=== PATIENT | male | born 1950 | race Caucasian/White ===

== ENCOUNTER 2021-03-31 21:30 | Inpatient (IN) | payer OTHER ==
[2021-03-31 21:39] VITALS: BMI 26.8
[2021-03-31] MEDS ORDERED: ACETAMINOPHEN 1000 MG/100 ML VIAL (NON FORMULARY) IVPB ONE (21:53)
[2021-03-31] MEDS ORDERED: ACETAMINOPHEN INJECTION 100 ML IVPB ONE (22:02)
[2021-03-31 22:33] LABS: BASO % 0.1 % (0-2.0); HEMATOCRIT 41.6 % (35.4-49); HEMOGLOBIN 14.6 GM/dL (11.7-16.9); LYMPH % 5.2 % (8-40); MCH 29.9 pg (25.7-33.7); MEAN CELL VOLUME 85.4 fl (80-96); MONO % 5.8 % (3.8-10.2); NEUT % 88.9 % (42.8-82.8); PLATELET COUNT 116 10^3/uL (134-434); RBC 4.87 M/mm3 (4.00-5.60); RDW 13.8 % (11.9-15.9); WHITE BLOOD COUNT 10.4 K/mm3 (4.0-10.0)
[2021-03-31 22:36] LABS: VENOUS BASE EXCESS 0.9 mmol/L (-2-2); VENOUS O2 SATURATION 91.1 % (70-80); VENOUS PCO2 33.8 mmHg (38-52); VENOUS PH 7.468 (7.310-7.410)
[2021-03-31 22:41] LABS: INR 1.24 (0.83-1.09); PROTHROMBIN TIME (PATIENT) 15.1 SEC (9.7-13.0)
[2021-03-31 22:44] LABS: ACTIVATED PTT 29.7 SECONDS (25.2-36.5)
[2021-03-31 22:54] LABS: CALCIUM 8.3 mg/dL (8.5-10.1)
[2021-03-31] MEDS ORDERED: SODIUM CHLORIDE 500 ML IV STA (22:54)
[2021-03-31 22:55] LABS: ALBUMIN 3.3 g/dl (3.4-5.0); BLOOD UREA NITROGEN 18.8 mg/dL (7-18); MAGNESIUM 2.3 mg/dL (1.8-2.4)
[2021-03-31 22:58] LABS: CREATININE 1.1 mg/dL (0.55-1.3); PHOSPHOROUS 1.6 mg/dL (2.5-4.9)
[2021-03-31 22:59] LABS: BILIRUBIN,TOTAL 0.8 mg/dL (0.2-1); TOT PROT 7.2 g/dl (6.4-8.2)
[2021-03-31 23:08] LABS: EPI CELLS >36 /uL (0-25.1); HYALINE CASTS 3 /uL (0-3.1); PH,URINE 5.5 (5.0-8.0); URINE APPEARANCE CLOUDY; URINE BACTERIA 8 /uL (0-1359); URINE BILIRUBIN 1+ (NEGATIVE); URINE COLOR DK YELLOW; URINE GLUCOSE (UA) NEGATIVE (NEGATIVE); URINE KETONE TRACE (NEGATIVE); URINE LEUK ESTERASE NEGATIVE (NEGATIVE); URINE NITRITE NEGATIVE (NEGATIVE); URINE PROTEIN 3+ (NEGATIVE); URINE RBC 15 /uL (0-23.9); URINE WBC 21 /uL (0-25.8)
[2021-04-01 05:48] LABS: BASO % 0.2 % (0-2.0); EOS % 0.1 % (0-4.5); HEMATOCRIT 42.4 % (35.4-49); HEMOGLOBIN 14.6 GM/dL (11.7-16.9); LYMPH % 10.5 % (8-40); MCH 29.9 pg (25.7-33.7); MCHC 34.4 g/dl (32.0-35.9); MEAN CELL VOLUME 86.8 fl (80-96); MEAN PLT VOLUME 9.6 fl (7.5-11.1); MONO % 5.4 % (3.8-10.2); NEUT % 83.8 % (42.8-82.8); PLATELET COUNT 110 10^3/uL (134-434); RBC 4.88 M/mm3 (4.00-5.60); RDW 13.8 % (11.9-15.9); WHITE BLOOD COUNT 10.4 K/mm3 (4.0-10.0)
[2021-04-01 06:19] LABS: ALBUMIN 3.2 g/dl (3.4-5.0); CALCIUM 8.6 mg/dL (8.5-10.1)
[2021-04-01 06:20] LABS: BLOOD UREA NITROGEN 19.3 mg/dL (7-18); MAGNESIUM 2.5 mg/dL (1.8-2.4)
[2021-04-01 06:23] LABS: PHOSPHOROUS 2.8 mg/dL (2.5-4.9)
[2021-04-01 06:24] LABS: BILIRUBIN,TOTAL 0.7 mg/dL (0.2-1); TOT PROT 7.2 g/dl (6.4-8.2)
[2021-04-01] MEDS ORDERED: FAMOTIDINE 20 MG TABLET ONE (09:30)
[2021-04-01] MEDS ORDERED: ZINC SULFATE 220 MG CAPSULE (FP) ONE (09:30)
[2021-04-01] MEDS ORDERED: CHOLECALCIFEROL (VIT D3) 1,000 UNIT (25 MCG) TABLET ONE (09:30)
[2021-04-01] MEDS ORDERED: ENOXAPARIN NA (PORCINE) 40 MG/0.4 ML DISP.SYRIN SQ ONE (09:31)
[2021-04-01] MEDS ORDERED: ASCORBIC ACID 250 MG TABLET (FP) PO SCH (10:00)
[2021-04-01] MEDS ORDERED: AZITHROMYCIN IVPB 250 MG in DEXTROSE 5%-WATER - 250 ML IVPB SCH (10:00)
[2021-04-01] MEDS ORDERED: DEXAMETHASONE 4 MG TABLET (FP) ONE (10:07)
[2021-04-01] MEDS ORDERED: ALBUTEROL SO4 HFA INHALER IH PRN (10:13)
[2021-04-01] MEDS: DEXAMETHASONE 4 MG TABLET (FP) PO SCH (10:29)
[2021-04-01] MEDS: ZINC SULFATE 220 MG CAPSULE (FP) PO SCH (10:30)
[2021-04-01] MEDS: ENOXAPARIN NA (PORCINE) 40 MG/0.4 ML DISP.SYRIN SQ SCH (10:30)
[2021-04-01] MEDS: FAMOTIDINE 20 MG TABLET PO SCH (10:30)
[2021-04-01] MEDS: CHOLECALCIFEROL (VIT D3) 1,000 UNIT (25 MCG) TABLET PO SCH (10:30)
[2021-04-01] MEDS ORDERED: NAPH,MB-DB/K PH,MBDB POWDER PACKET PO SCH (14:00)
[2021-04-01] MEDS: BUDESONIDE/FORMETEROL FUMARATE 160/4.5 mcg INHALER IH SCH (21:08)
[2021-04-01] MEDS: ASCORBIC ACID 500 MG TABLET (FP) PO SCH (21:09)
[2021-04-02 06:59] LABS: BASO % 0.1 % (0-2.0); HEMATOCRIT 40.7 % (35.4-49); HEMOGLOBIN 14.3 GM/dL (11.7-16.9); LYMPH % 5.4 % (8-40); MCH 29.7 pg (25.7-33.7); MCHC 35.1 g/dl (32.0-35.9); MEAN CELL VOLUME 84.6 fl (80-96); MEAN PLT VOLUME 9.8 fl (7.5-11.1); MONO % 4.6 % (3.8-10.2); NEUT % 89.9 % (42.8-82.8); PLATELET COUNT 147 10^3/uL (134-434); RBC 4.81 M/mm3 (4.00-5.60); WHITE BLOOD COUNT 10.1 K/mm3 (4.0-10.0)
[2021-04-02 07:12] LABS: ALBUMIN 2.8 g/dl (3.4-5.0); BLOOD UREA NITROGEN 18.1 mg/dL (7-18); CALCIUM 8.3 mg/dL (8.5-10.1)
[2021-04-02 07:15] LABS: CREATININE 0.8 mg/dL (0.55-1.3)
[2021-04-02 07:17] LABS: BILIRUBIN,TOTAL 0.8 mg/dL (0.2-1); TOT PROT 6.9 g/dl (6.4-8.2)
[2021-04-02] MEDS: DEXAMETHASONE 4 MG TABLET (FP) PO SCH (10:05)
[2021-04-02] MEDS: ASCORBIC ACID 500 MG TABLET (FP) PO SCH ×2 (10:05→21:50)
[2021-04-02] MEDS: FAMOTIDINE 20 MG TABLET PO SCH (10:05)
[2021-04-02] MEDS: CHOLECALCIFEROL (VIT D3) 1,000 UNIT (25 MCG) TABLET PO SCH (10:05)
[2021-04-02] MEDS: ZINC SULFATE 220 MG CAPSULE (FP) PO SCH (10:05)
[2021-04-02] MEDS: ENOXAPARIN NA (PORCINE) 40 MG/0.4 ML DISP.SYRIN SQ SCH (10:05)
[2021-04-02] MEDS: BUDESONIDE/FORMETEROL FUMARATE 160/4.5 mcg INHALER IH SCH ×2 (10:22→21:51)
[2021-04-03 07:24] LABS: BASO % 0.1 % (0-2.0); HEMATOCRIT 40.6 % (35.4-49); LYMPH % 5.9 % (8-40); MCH 29.5 pg (25.7-33.7); MCHC 34.5 g/dl (32.0-35.9); MEAN CELL VOLUME 85.4 fl (80-96); MEAN PLT VOLUME 10.2 fl (7.5-11.1); MONO % 8.4 % (3.8-10.2); NEUT % 85.6 % (42.8-82.8); PLATELET COUNT 180 10^3/uL (134-434); RBC 4.76 M/mm3 (4.00-5.60); RDW 13.8 % (11.9-15.9); WHITE BLOOD COUNT 12.6 K/mm3 (4.0-10.0)
[2021-04-03 07:51] LABS: BLOOD UREA NITROGEN 24.2 mg/dL (7-18)
[2021-04-03 07:52] LABS: CALCIUM 8.5 mg/dL (8.5-10.1); MAGNESIUM 2.7 mg/dL (1.8-2.4)
[2021-04-03 07:54] LABS: CREATININE 0.8 mg/dL (0.55-1.3); PHOSPHOROUS 3.1 mg/dL (2.5-4.9)
[2021-04-03] MEDS ORDERED: PT OWN MED DRAWER 7, Y5N ONE ×2 (10:29→17:24)
[2021-04-03] MEDS ORDERED: REMDESIVIR 200 MG in SODIUM CHLORIDE 250 ML IVPB ONE (10:30)
[2021-04-03] MEDS: DEXAMETHASONE 4 MG TABLET (FP) PO SCH (10:36)
[2021-04-03] MEDS: ENOXAPARIN NA (PORCINE) 40 MG/0.4 ML DISP.SYRIN SQ SCH (10:36)
[2021-04-03] MEDS: ASCORBIC ACID 500 MG TABLET (FP) PO SCH ×2 (10:37→21:34)
[2021-04-03] MEDS: FAMOTIDINE 20 MG TABLET PO SCH (10:37)
[2021-04-03] MEDS: CHOLECALCIFEROL (VIT D3) 1,000 UNIT (25 MCG) TABLET PO SCH (10:37)
[2021-04-03] MEDS: BUDESONIDE/FORMETEROL FUMARATE 160/4.5 mcg INHALER IH SCH ×2 (10:37→21:34)
[2021-04-03] MEDS: ZINC SULFATE 220 MG CAPSULE (FP) PO SCH (10:37)
[2021-04-03] MEDS: AZTREONAM 2 GM in DEXTROSE 5%-WATER 100 ML IVPB SCH ×2 (11:34→17:40)
[2021-04-03] MEDS ORDERED: MELATONIN 1 MG TABLET PO ONE (11:39)
[2021-04-03 12:14] LABS: ALBUMIN 2.9 g/dl (3.4-5.0)
[2021-04-03 12:16] LABS: BILIRUBIN,DIRECT 0.2 mg/dL (0.0-0.2)
[2021-04-03 12:18] LABS: BILIRUBIN,TOTAL 0.5 mg/dL (0.2-1)
[2021-04-03 12:19] LABS: TOT PROT 6.9 g/dl (6.4-8.2)
[2021-04-03] MEDS: LISINOPRIL 5 MG TABLET PO SCH (18:19)
[2021-04-03] MEDS: MELATONIN 1 MG TABLET PO SCH (21:34)
[2021-04-04] MEDS: AZTREONAM 2 GM in DEXTROSE 5%-WATER 100 ML IVPB SCH ×2 (02:14→23:20)
[2021-04-04 07:08] LABS: BASO % 0.1 % (0-2.0); HEMATOCRIT 41.9 % (35.4-49); HEMOGLOBIN 14.4 GM/dL (11.7-16.9); LYMPH % 8.4 % (8-40); MCH 29.7 pg (25.7-33.7); MCHC 34.3 g/dl (32.0-35.9); MEAN CELL VOLUME 86.5 fl (80-96); MEAN PLT VOLUME 9.6 fl (7.5-11.1); MONO % 9.5 % (3.8-10.2); PLATELET COUNT 226 10^3/uL (134-434); RBC 4.84 M/mm3 (4.00-5.60); RDW 13.8 % (11.9-15.9); WHITE BLOOD COUNT 11.5 K/mm3 (4.0-10.0)
[2021-04-04 07:42] LABS: ALBUMIN 2.7 g/dl (3.4-5.0)
[2021-04-04 07:43] LABS: BLOOD UREA NITROGEN 21.5 mg/dL (7-18); CALCIUM 8.6 mg/dL (8.5-10.1); MAGNESIUM 2.6 mg/dL (1.8-2.4)
[2021-04-04 07:46] LABS: BILIRUBIN,DIRECT 0.2 mg/dL (0.0-0.2); CREATININE 0.8 mg/dL (0.55-1.3); PHOSPHOROUS 3.7 mg/dL (2.5-4.9)
[2021-04-04 07:47] LABS: BILIRUBIN,TOTAL 0.4 mg/dL (0.2-1); TOT PROT 6.8 g/dl (6.4-8.2)
[2021-04-04] MEDS: ZINC SULFATE 220 MG CAPSULE (FP) PO SCH (10:31)
[2021-04-04] MEDS: CLOPIDOGREL BISULFATE 75 MG TABLET (FP) PO SCH (10:31)
[2021-04-04] MEDS: ENOXAPARIN NA (PORCINE) 40 MG/0.4 ML DISP.SYRIN SQ SCH (10:31)
[2021-04-04] MEDS: FAMOTIDINE 20 MG TABLET PO SCH (10:31)
[2021-04-04] MEDS: REMDESIVIR 100 MG in SODIUM CHLORIDE 250 ML IVPB SCH (10:31)
[2021-04-04] MEDS: CHOLECALCIFEROL (VIT D3) 1,000 UNIT (25 MCG) TABLET PO SCH (10:31)
[2021-04-04] MEDS: LISINOPRIL 5 MG TABLET PO SCH (10:31)
[2021-04-04] MEDS: ASCORBIC ACID 500 MG TABLET (FP) PO SCH ×2 (10:32→22:02)
[2021-04-04] MEDS: BUDESONIDE/FORMETEROL FUMARATE 160/4.5 mcg INHALER IH SCH ×2 (10:32→22:00)
[2021-04-04] MEDS: DEXAMETHASONE 4 MG TABLET (FP) PO SCH (10:32)
[2021-04-04] MEDS ORDERED: LACTATED RINGERS SOLUTION 1,000 ML/1,000 ML INFUS.BAG IV SCH (16:00)
[2021-04-04] MEDS: BARICITINIB 2 MG TABLET PO SCH (17:37)
[2021-04-04] MEDS ORDERED: DOXYCYCLINE HYCLATE 100 MG VIAL ONE (21:55)
[2021-04-04] MEDS ORDERED: PT OWN MED DRAWER 7, Y5N ONE (21:56)
[2021-04-04] MEDS ORDERED: DEXTROSE 5%-WATER 100 ML IVPB ONE (21:56)
[2021-04-04] MEDS: DOXYCYCLINE INJECTION 100 MG in DEXTROSE 5%-WATER 100 ML IVPB SCH (21:58)
[2021-04-04] MEDS: MELATONIN 1 MG TABLET PO SCH (23:19)
[2021-04-05] MEDS: AZTREONAM 2 GM in DEXTROSE 5%-WATER 100 ML IVPB SCH ×3 (02:00→18:10)
[2021-04-05 07:46] LABS: HEMATOCRIT 40.9 % (35.4-49); HEMOGLOBIN 14.1 GM/dL (11.7-16.9); MCH 29.8 pg (25.7-33.7); MCHC 34.5 g/dl (32.0-35.9); MEAN CELL VOLUME 86.4 fl (80-96); MEAN PLT VOLUME 9.5 fl (7.5-11.1); PLATELET COUNT 227 10^3/uL (134-434); RBC 4.74 M/mm3 (4.00-5.60); RDW 13.8 % (11.9-15.9); WHITE BLOOD COUNT 15.1 K/mm3 (4.0-10.0)
[2021-04-05 08:23] LABS: ALBUMIN 2.7 g/dl (3.4-5.0); CALCIUM 8.7 mg/dL (8.5-10.1)
[2021-04-05 08:24] LABS: BLOOD UREA NITROGEN 21.5 mg/dL (7-18); MAGNESIUM 2.4 mg/dL (1.8-2.4)
[2021-04-05 08:26] LABS: BILIRUBIN,DIRECT 0.2 mg/dL (0.0-0.2)
[2021-04-05 08:27] LABS: CREATININE 0.7 mg/dL (0.55-1.3)
[2021-04-05 08:28] LABS: BILIRUBIN,TOTAL 0.5 mg/dL (0.2-1); PHOSPHOROUS 3.3 mg/dL (2.5-4.9); TOT PROT 6.5 g/dl (6.4-8.2)
[2021-04-05] MEDS ORDERED: DEXTROSE 5%-WATER 100 ML IVPB ONE ×2 (10:26→21:11)
[2021-04-05] MEDS ORDERED: DOXYCYCLINE HYCLATE 100 MG VIAL ONE ×2 (10:26→21:11)
[2021-04-05] MEDS ORDERED: PT OWN MED DRAWER 7, Y5N ONE (10:28)
[2021-04-05] MEDS: LISINOPRIL 5 MG TABLET PO SCH (10:30)
[2021-04-05] MEDS: FAMOTIDINE 20 MG TABLET PO SCH (10:30)
[2021-04-05] MEDS: BARICITINIB 2 MG TABLET PO SCH (10:30)
[2021-04-05] MEDS: ASCORBIC ACID 500 MG TABLET (FP) PO SCH ×2 (10:31→21:30)
[2021-04-05] MEDS: CLOPIDOGREL BISULFATE 75 MG TABLET (FP) PO SCH (10:31)
[2021-04-05] MEDS: ZINC SULFATE 220 MG CAPSULE (FP) PO SCH (10:31)
[2021-04-05] MEDS: CHOLECALCIFEROL (VIT D3) 1,000 UNIT (25 MCG) TABLET PO SCH (10:31)
[2021-04-05] MEDS: DEXAMETHASONE 4 MG TABLET (FP) PO SCH (10:31)
[2021-04-05] MEDS: BUDESONIDE/FORMETEROL FUMARATE 160/4.5 mcg INHALER IH SCH ×2 (10:32→21:31)
[2021-04-05] MEDS: DOXYCYCLINE INJECTION 100 MG in DEXTROSE 5%-WATER 100 ML IVPB SCH ×2 (10:32→21:30)
[2021-04-05] MEDS: ENOXAPARIN NA (PORCINE) 40 MG/0.4 ML DISP.SYRIN SQ SCH (10:32)
[2021-04-05] MEDS: REMDESIVIR 100 MG in SODIUM CHLORIDE 250 ML IVPB SCH (10:33)
[2021-04-06] MEDS ORDERED: PT OWN MED DRAWER 7, Y5N ONE ×6 (00:51→22:58)
[2021-04-06] MEDS: AZTREONAM 2 GM in DEXTROSE 5%-WATER 100 ML IVPB SCH ×3 (01:08→17:03)
[2021-04-06 07:11] LABS: HEMATOCRIT 42.2 % (35.4-49); HEMOGLOBIN 14.5 GM/dL (11.7-16.9); MCH 29.5 pg (25.7-33.7); MCHC 34.5 g/dl (32.0-35.9); MEAN CELL VOLUME 85.5 fl (80-96); MEAN PLT VOLUME 9.3 fl (7.5-11.1); PLATELET COUNT 257 10^3/uL (134-434); RBC 4.93 M/mm3 (4.00-5.60); RDW 13.7 % (11.9-15.9); WHITE BLOOD COUNT 15.6 K/mm3 (4.0-10.0)
[2021-04-06 07:22] LABS: CALCIUM 9.2 mg/dL (8.5-10.1)
[2021-04-06 07:23] LABS: ALBUMIN 2.9 g/dl (3.4-5.0)
[2021-04-06 07:25] LABS: CREATININE 0.8 mg/dL (0.55-1.3)
[2021-04-06 07:26] LABS: PHOSPHOROUS 3.3 mg/dL (2.5-4.9)
[2021-04-06 07:27] LABS: BILIRUBIN,TOTAL 0.5 mg/dL (0.2-1)
[2021-04-06] MEDS ORDERED: DEXTROSE 5%-WATER 100 ML IVPB ONE ×2 (09:13→22:56)
[2021-04-06] MEDS ORDERED: DOXYCYCLINE HYCLATE 100 MG VIAL ONE ×2 (09:13→22:55)
[2021-04-06 09:19] LABS: ANISOCYTOSIS 1+; MACROCYTOSIS 0; PLATELET ESTIMATE NORMAL
[2021-04-06] MEDS: DEXAMETHASONE 4 MG TABLET (FP) PO SCH (09:38)
[2021-04-06] MEDS: LISINOPRIL 5 MG TABLET PO SCH (09:38)
[2021-04-06] MEDS: CHOLECALCIFEROL (VIT D3) 1,000 UNIT (25 MCG) TABLET PO SCH (09:38)
[2021-04-06] MEDS: ZINC SULFATE 220 MG CAPSULE (FP) PO SCH (09:39)
[2021-04-06] MEDS: BARICITINIB 2 MG TABLET PO SCH (09:39)
[2021-04-06] MEDS: ENOXAPARIN NA (PORCINE) 40 MG/0.4 ML DISP.SYRIN SQ SCH (09:39)
[2021-04-06] MEDS: DOXYCYCLINE INJECTION 100 MG in DEXTROSE 5%-WATER 100 ML IVPB SCH ×2 (09:39→23:02)
[2021-04-06] MEDS: ASCORBIC ACID 500 MG TABLET (FP) PO SCH ×2 (09:40→23:01)
[2021-04-06] MEDS: CLOPIDOGREL BISULFATE 75 MG TABLET (FP) PO SCH (09:40)
[2021-04-06] MEDS: FAMOTIDINE 20 MG TABLET PO SCH (09:40)
[2021-04-06] MEDS: BUDESONIDE/FORMETEROL FUMARATE 160/4.5 mcg INHALER IH SCH ×2 (10:01→23:01)
[2021-04-06] MEDS: REMDESIVIR 100 MG in SODIUM CHLORIDE 250 ML IVPB SCH (12:03)
[2021-04-06] MEDS: QUEtiapine FUMARATE 25 MG TABLET PO SCH (23:01)
[2021-04-07] MEDS: AZTREONAM 2 GM in DEXTROSE 5%-WATER 100 ML IVPB SCH ×3 (01:19→18:17)
[2021-04-07 08:16] LABS: CALCIUM 9.1 mg/dL (8.5-10.1); MAGNESIUM 2.4 mg/dL (1.8-2.4)
[2021-04-07 08:17] LABS: ALBUMIN 2.9 g/dl (3.4-5.0)
[2021-04-07 08:20] LABS: CREATININE 0.8 mg/dL (0.55-1.3)
[2021-04-07 08:21] LABS: BILIRUBIN,TOTAL 0.5 mg/dL (0.2-1); HEMATOCRIT 44.3 % (35.4-49); HEMOGLOBIN 15.1 GM/dL (11.7-16.9); MCH 29.7 pg (25.7-33.7); MCHC 34.2 g/dl (32.0-35.9); MEAN CELL VOLUME 86.9 fl (80-96); MEAN PLT VOLUME 9.5 fl (7.5-11.1); PHOSPHOROUS 3.3 mg/dL (2.5-4.9); PLATELET COUNT 291 10^3/uL (134-434); RBC 5.09 M/mm3 (4.00-5.60); RDW 13.9 % (11.9-15.9); TOT PROT 7.2 g/dl (6.4-8.2)
[2021-04-07 08:38] LABS: WHITE BLOOD COUNT 15.3 K/mm3 (4.0-10.0)
[2021-04-07] MEDS ORDERED: DOXYCYCLINE HYCLATE 100 MG VIAL ONE ×2 (09:21→22:13)
[2021-04-07] MEDS ORDERED: DEXTROSE 5%-WATER 100 ML IVPB ONE ×2 (09:21→22:13)
[2021-04-07] MEDS ORDERED: PT OWN MED DRAWER 7, Y5N ONE ×2 (09:23→18:10)
[2021-04-07 09:29] LABS: ANISOCYTOSIS 1+; MACROCYTOSIS 0; PLATELET ESTIMATE NORMAL
[2021-04-07] MEDS: ZINC SULFATE 220 MG CAPSULE (FP) PO SCH (09:45)
[2021-04-07] MEDS: ASCORBIC ACID 500 MG TABLET (FP) PO SCH ×2 (09:45→22:27)
[2021-04-07] MEDS: LISINOPRIL 5 MG TABLET PO SCH (09:45)
[2021-04-07] MEDS: CLOPIDOGREL BISULFATE 75 MG TABLET (FP) PO SCH (09:45)
[2021-04-07] MEDS: DEXAMETHASONE 4 MG TABLET (FP) PO SCH (09:46)
[2021-04-07] MEDS: ENOXAPARIN NA (PORCINE) 40 MG/0.4 ML DISP.SYRIN SQ SCH (09:47)
[2021-04-07] MEDS: CHOLECALCIFEROL (VIT D3) 1,000 UNIT (25 MCG) TABLET PO SCH (09:47)
[2021-04-07] MEDS: BUDESONIDE/FORMETEROL FUMARATE 160/4.5 mcg INHALER IH SCH ×2 (09:47→22:29)
[2021-04-07] MEDS: FAMOTIDINE 20 MG TABLET PO SCH (09:47)
[2021-04-07] MEDS: DOXYCYCLINE INJECTION 100 MG in DEXTROSE 5%-WATER 100 ML IVPB SCH ×2 (10:55→22:29)
[2021-04-07] MEDS: REMDESIVIR 100 MG in SODIUM CHLORIDE 250 ML IVPB SCH (12:25)
[2021-04-07] MEDS: BARICITINIB 2 MG TABLET PO SCH ×3 (12:26→13:11)
[2021-04-07] MEDS: QUEtiapine FUMARATE 25 MG TABLET PO SCH (22:27)
[2021-04-08] MEDS ORDERED: PT OWN MED DRAWER 7, Y5N ONE ×2 (01:43→17:05)
[2021-04-08] MEDS: AZTREONAM 2 GM in DEXTROSE 5%-WATER 100 ML IVPB SCH ×3 (01:44→17:16)
[2021-04-08] MEDS ORDERED: DEXTROSE 5%-WATER 100 ML IVPB ONE ×2 (10:00→20:58)
[2021-04-08] MEDS ORDERED: DOXYCYCLINE HYCLATE 100 MG VIAL ONE ×2 (10:00→20:58)
[2021-04-08] MEDS: DOXYCYCLINE INJECTION 100 MG in DEXTROSE 5%-WATER 100 ML IVPB SCH ×2 (11:59→21:32)
[2021-04-08] MEDS: BARICITINIB 2 MG TABLET PO SCH (12:02)
[2021-04-08] MEDS: CHOLECALCIFEROL (VIT D3) 1,000 UNIT (25 MCG) TABLET PO SCH (12:02)
[2021-04-08] MEDS: ZINC SULFATE 220 MG CAPSULE (FP) PO SCH (12:02)
[2021-04-08] MEDS: BUDESONIDE/FORMETEROL FUMARATE 160/4.5 mcg INHALER IH SCH ×2 (12:02→21:39)
[2021-04-08] MEDS: CLOPIDOGREL BISULFATE 75 MG TABLET (FP) PO SCH (12:02)
[2021-04-08] MEDS: ASCORBIC ACID 500 MG TABLET (FP) PO SCH ×2 (12:02→21:39)
[2021-04-08] MEDS: LISINOPRIL 5 MG TABLET PO SCH (12:02)
[2021-04-08] MEDS: FAMOTIDINE 20 MG TABLET PO SCH (12:02)
[2021-04-08] MEDS: DEXAMETHASONE 4 MG TABLET (FP) PO SCH (12:02)
[2021-04-08] MEDS: QUEtiapine FUMARATE 25 MG TABLET PO SCH (21:39)
[2021-04-09] MEDS ORDERED: PT OWN MED DRAWER 7, Y5N ONE ×2 (01:03→15:41)
[2021-04-09] MEDS: AZTREONAM 2 GM in DEXTROSE 5%-WATER 100 ML IVPB SCH ×3 (01:15→17:05)
[2021-04-09 08:22] LABS: HEMATOCRIT 44.7 % (35.4-49); HEMOGLOBIN 15.2 GM/dL (11.7-16.9); MCH 29.2 pg (25.7-33.7); MCHC 34.1 g/dl (32.0-35.9); MEAN CELL VOLUME 85.6 fl (80-96); MEAN PLT VOLUME 9.4 fl (7.5-11.1); PLATELET COUNT 340 10^3/uL (134-434); RBC 5.22 M/mm3 (4.00-5.60); RDW 14.2 % (11.9-15.9); WHITE BLOOD COUNT 15.5 K/mm3 (4.0-10.0)
[2021-04-09 08:42] LABS: CALCIUM 9.1 mg/dL (8.5-10.1)
[2021-04-09 08:43] LABS: ALBUMIN 2.6 g/dl (3.4-5.0); BLOOD UREA NITROGEN 29.6 mg/dL (7-18)
[2021-04-09 08:46] LABS: CREATININE 0.7 mg/dL (0.55-1.3)
[2021-04-09 08:47] LABS: TOT PROT 7.1 g/dl (6.4-8.2)
[2021-04-09 08:48] LABS: BILIRUBIN,TOTAL 0.8 mg/dL (0.2-1)
[2021-04-09] MEDS ORDERED: DOXYCYCLINE HYCLATE 100 MG VIAL ONE ×2 (09:13→20:59)
[2021-04-09] MEDS ORDERED: DEXTROSE 5%-WATER 100 ML IVPB ONE ×2 (09:13→20:59)
[2021-04-09 10:17] LABS: ANISOCYTOSIS 1+; MACROCYTOSIS 0; PLATELET ESTIMATE NORMAL
[2021-04-09] MEDS: DOXYCYCLINE INJECTION 100 MG in DEXTROSE 5%-WATER 100 ML IVPB SCH ×2 (11:26→21:24)
[2021-04-09] MEDS: CLOPIDOGREL BISULFATE 75 MG TABLET (FP) PO SCH (11:27)
[2021-04-09] MEDS: LISINOPRIL 5 MG TABLET PO SCH (11:27)
[2021-04-09] MEDS: ASCORBIC ACID 500 MG TABLET (FP) PO SCH ×2 (13:57→21:39)
[2021-04-09] MEDS: CHOLECALCIFEROL (VIT D3) 1,000 UNIT (25 MCG) TABLET PO SCH (13:57)
[2021-04-09] MEDS: BUDESONIDE/FORMETEROL FUMARATE 160/4.5 mcg INHALER IH SCH ×2 (13:57→21:38)
[2021-04-09] MEDS: ZINC SULFATE 220 MG CAPSULE (FP) PO SCH (13:57)
[2021-04-09] MEDS: FAMOTIDINE 20 MG TABLET PO SCH (13:57)
[2021-04-09] MEDS: BARICITINIB 2 MG TABLET PO SCH (13:57)
[2021-04-09] MEDS: DEXAMETHASONE 4 MG TABLET (FP) PO SCH (13:57)
[2021-04-09] MEDS: QUEtiapine FUMARATE 25 MG TABLET PO SCH (21:39)
[2021-04-10] MEDS ORDERED: PT OWN MED DRAWER 7, Y5N ONE ×2 (01:26→10:47)
[2021-04-10] MEDS: AZTREONAM 2 GM in DEXTROSE 5%-WATER 100 ML IVPB SCH (01:42)
[2021-04-10 08:23] LABS: BASO % 0.1 % (0-2.0); HEMATOCRIT 45.9 % (35.4-49); HEMOGLOBIN 15.7 GM/dL (11.7-16.9); LYMPH % 5.5 % (8-40); MCH 29.2 pg (25.7-33.7); MCHC 34.2 g/dl (32.0-35.9); MEAN CELL VOLUME 85.5 fl (80-96); MEAN PLT VOLUME 9.2 fl (7.5-11.1); MONO % 5.4 % (3.8-10.2); PLATELET COUNT 346 10^3/uL (134-434); RBC 5.38 M/mm3 (4.00-5.60); RDW 13.5 % (11.9-15.9); WHITE BLOOD COUNT 15.1 K/mm3 (4.0-10.0)
[2021-04-10 08:44] LABS: ALBUMIN 2.7 g/dl (3.4-5.0); BLOOD UREA NITROGEN 30.2 mg/dL (7-18); CALCIUM 9.1 mg/dL (8.5-10.1)
[2021-04-10 08:46] LABS: TOT PROT 7.4 g/dl (6.4-8.2)
[2021-04-10 08:47] LABS: BILIRUBIN,TOTAL 0.4 mg/dL (0.2-1); CREATININE 0.8 mg/dL (0.55-1.3)
[2021-04-10] MEDS: FAMOTIDINE 20 MG TABLET PO SCH (10:51)
[2021-04-10] MEDS: CHOLECALCIFEROL (VIT D3) 1,000 UNIT (25 MCG) TABLET PO SCH (10:51)
[2021-04-10] MEDS: CLOPIDOGREL BISULFATE 75 MG TABLET (FP) PO SCH (10:52)
[2021-04-10] MEDS: LISINOPRIL 5 MG TABLET PO SCH (10:52)
[2021-04-10] MEDS: BARICITINIB 2 MG TABLET PO SCH (10:52)
[2021-04-10] MEDS: ZINC SULFATE 220 MG CAPSULE (FP) PO SCH (10:53)
[2021-04-10] MEDS: ASCORBIC ACID 500 MG TABLET (FP) PO SCH ×2 (10:54→21:39)
[2021-04-10] MEDS: BUDESONIDE/FORMETEROL FUMARATE 160/4.5 mcg INHALER IH SCH ×2 (11:04→21:39)
[2021-04-10] MEDS: QUEtiapine FUMARATE 25 MG TABLET PO SCH (21:39)
[2021-04-11] MEDS ORDERED: PT OWN MED DRAWER 7, Y5N ONE ×2 (07:33→08:52)
[2021-04-11] MEDS ORDERED: ACETAMINOPHEN 1000 MG/100 ML VIAL (NON FORMULARY) IVPB PRN (08:21)
[2021-04-11] MEDS ORDERED: ACETAMINOPHEN 325 MG TABLET (FP) PO PRN (09:24)
[2021-04-11] MEDS: FAMOTIDINE 20 MG TABLET PO SCH (09:50)
[2021-04-11] MEDS: CLOPIDOGREL BISULFATE 75 MG TABLET (FP) PO SCH (09:50)
[2021-04-11] MEDS: ZINC SULFATE 220 MG CAPSULE (FP) PO SCH (09:50)
[2021-04-11] MEDS: LISINOPRIL 5 MG TABLET PO SCH (09:50)
[2021-04-11] MEDS: ASCORBIC ACID 500 MG TABLET (FP) PO SCH (09:51)
[2021-04-11] MEDS: CHOLECALCIFEROL (VIT D3) 1,000 UNIT (25 MCG) TABLET PO SCH (09:51)
[2021-04-11] MEDS: BARICITINIB 2 MG TABLET PO SCH (09:51)
[2021-04-11] MEDS: BUDESONIDE/FORMETEROL FUMARATE 160/4.5 mcg INHALER IH SCH (10:11)
[2021-04-11 10:38] LABS: HEMOGLOBIN 16.7 GM/dL (11.7-16.9); MCH 29.5 pg (25.7-33.7); MEAN CELL VOLUME 86.7 fl (80-96); MEAN PLT VOLUME 9.6 fl (7.5-11.1); PLATELET COUNT 373 10^3/uL (134-434); RBC 5.65 M/mm3 (4.00-5.60); WHITE BLOOD COUNT 23.4 K/mm3 (4.0-10.0)
[2021-04-11 11:08] LABS: ALBUMIN 2.9 g/dl (3.4-5.0); BLOOD UREA NITROGEN 41.3 mg/dL (7-18); CALCIUM 9.3 mg/dL (8.5-10.1); MAGNESIUM 2.5 mg/dL (1.8-2.4)
[2021-04-11 11:11] LABS: PHOSPHOROUS 3.9 mg/dL (2.5-4.9)
[2021-04-11 11:13] LABS: BILIRUBIN,TOTAL 0.6 mg/dL (0.2-1); TOT PROT 7.6 g/dl (6.4-8.2)
[2021-04-11 13:20] LABS: ANISOCYTOSIS 0; MACROCYTOSIS 0; PLATELET ESTIMATE NORMAL
[2021-04-11 14:40] VITALS: BP 138/82; PULSE 96; TEMP 97.8
== END 2021-04-11 15:09 | DRG 177 ==
LOC: JER 21:30 → JERBED 22:04 → J4S 04-01 12:32
PROVIDERS: ADMIT Internal Medicine
PROC: XW033E5 Introduction of Remdesivir Anti-infective into Peripheral Vein, Percutaneous Approach, New Technology Group 5 (ICD-10-PCS; principal; 2021-04-03)
DX: U07.1 COVID-19 (principal); J12.82 Pneumonia due to coronavirus disease 2019; G93.41 Metabolic encephalopathy; J96.01 Acute respiratory failure with hypoxia; G20 Parkinson's disease; Z86.73 Personal history of transient ischemic attack (TIA), and cerebral infarction without residual deficits; F32.9 Major depressive disorder, single episode, unspecified; G62.9 Polyneuropathy, unspecified; F03.90 Unspecified dementia, unspecified severity, without behavioral disturbance, psychotic disturbance, mood disturbance, and anxiety; E78.5 Hyperlipidemia, unspecified; I73.9 Peripheral vascular disease, unspecified; R74.01 Elevation of levels of liver transaminase levels; I10 Essential (primary) hypertension
CPT/HCPCS: 36415; 70450-TC; 71045-TC-FY; 80048; 80053; 80076; 81003; 82728; 82803; 82962; 83605; 83615; 83735; 84100; 84443; 84484; 85025; 85027; 85379; 85610; 85730; 86140; 87040; 87086; 87804; 93005; 93010; 97116-GP; 97161-GP; 99285-25; C9399; C9803; J0131; U0003; U0005

== ENCOUNTER 2021-04-13 16:59 | Inpatient (IN) | payer OTHER ==
[2021-04-13 17:41] VITALS: BMI 26.6
[2021-04-13 19:15] LABS: BASO % 0.3 % (0-2.0); EOS % 0.1 % (0-4.5); HEMATOCRIT 49.4 % (35.4-49); HEMOGLOBIN 16.6 GM/dL (11.7-16.9); LYMPH % 5.5 % (8-40); MCHC 33.6 g/dl (32.0-35.9); MEAN CELL VOLUME 86.4 fl (80-96); MEAN PLT VOLUME 9.4 fl (7.5-11.1); MONO % 5.9 % (3.8-10.2); NEUT % 88.2 % (42.8-82.8); PLATELET COUNT 315 10^3/uL (134-434); RBC 5.72 M/mm3 (4.00-5.60); RDW 13.8 % (11.9-15.9); WHITE BLOOD COUNT 19.1 K/mm3 (4.0-10.0)
[2021-04-13 19:23] LABS: INR 1.11 (0.83-1.09); PROTHROMBIN TIME (PATIENT) 13.4 SEC (9.7-13.0)
[2021-04-13 19:26] LABS: ACTIVATED PTT 32.2 SECONDS (25.2-36.5)
[2021-04-13 19:32] LABS: CHLORIDE 111 mmol/L (98-107); SODIUM 145 mmol/L (136-145)
[2021-04-13 19:34] LABS: CALCIUM 9.5 mg/dL (8.5-10.1)
[2021-04-13 19:35] LABS: ALBUMIN 2.9 g/dl (3.4-5.0); ANION GAP 10 MMOL/L (8-16); CO2 23 mmol/L (21-32); GLUCOSE,RANDOM 124 mg/dL (74-106); MAGNESIUM 3.4 mg/dL (1.8-2.4)
[2021-04-13 19:38] LABS: PHOSPHOROUS 5.1 mg/dL (2.5-4.9); SGOT/AST 49 U/L (15-37); SGPT/ALT 71 U/L (13-61)
[2021-04-13 19:39] LABS: BILIRUBIN,TOTAL 0.7 mg/dL (0.2-1); TOT PROT 7.8 g/dl (6.4-8.2)
[2021-04-13 19:41] LABS: ALK PHOS 91 U/L (45-117)
[2021-04-13 19:53] LABS: BLOOD UREA NITROGEN 75.1 mg/dL (7-18)
[2021-04-13] MEDS ORDERED: SODIUM CHLORIDE 0.9% 500 ML INFUS.BAG IV ONE ×2 (19:54→21:53)
[2021-04-13 20:49] LABS: URINE APPEARANCE CLEAR; URINE BILIRUBIN NEGATIVE (NEGATIVE); URINE COLOR YELLOW; URINE GLUCOSE (UA) NEGATIVE (NEGATIVE); URINE KETONE TRACE (NEGATIVE); URINE LEUK ESTERASE NEGATIVE (NEGATIVE); URINE NITRITE NEGATIVE (NEGATIVE); URINE PROTEIN TRACE (NEGATIVE); URINE UROBILINOGEN 0.2 mg/dL (0.2-1.0)
[2021-04-13] MEDS ORDERED: FAMOTIDINE 20 MG/50 ML IVPB 20 MG/50 ML MG IVPB ONE ×2 (21:53→22:04)
[2021-04-14] MEDS ORDERED: ACETAMINOPHEN 325 MG TABLET (FP) PO PRN (00:41)
[2021-04-14] MEDS ORDERED: DEXTROSE 5%-NORMAL SALINE 1,000 ML IV SCH (00:45)
[2021-04-14] MEDS ORDERED: ALBUTEROL SO4 HFA INHALER IH PRN (01:12)
[2021-04-14] MEDS: HEPARIN NA (PORCINE) 5,000 UNITS/ML 1ML VIAL SQ SCH ×3 (06:38→21:33)
[2021-04-14] MEDS ORDERED: DEXTROSE 5%-0.45% SALINE 1,000 ML IV SCH (10:00)
[2021-04-14 10:11] LABS: HEMATOCRIT 40.3 % (35.4-49); HEMOGLOBIN 12.9 GM/dL (11.7-16.9); MCH 29.3 pg (25.7-33.7); MEAN CELL VOLUME 91.5 fl (80-96); PLATELET COUNT 220 10^3/uL (134-434); WHITE BLOOD COUNT 15.6 K/mm3 (4.0-10.0)
[2021-04-14 10:42] LABS: CHLORIDE 120 mmol/L (98-107); SODIUM 150 mmol/L (136-145)
[2021-04-14 10:45] LABS: ANION GAP 4 MMOL/L (8-16); BLOOD UREA NITROGEN 51.1 mg/dL (7-18); CO2 26 mmol/L (21-32); MAGNESIUM 2.9 mg/dL (1.8-2.4)
[2021-04-14 10:48] LABS: CREATININE 1.3 mg/dL (0.55-1.3); SGOT/AST 38 U/L (15-37); SGPT/ALT 60 U/L (13-61)
[2021-04-14 10:50] LABS: BILIRUBIN,TOTAL 0.9 mg/dL (0.2-1); TOT PROT 6.1 g/dl (6.4-8.2)
[2021-04-14 10:51] LABS: ALK PHOS 69 U/L (45-117)
[2021-04-14 10:57] LABS: ALBUMIN 2.2 g/dl (3.4-5.0); CALCIUM 7.5 mg/dL (8.5-10.1); GLUCOSE,RANDOM 446 mg/dL (74-106)
[2021-04-14] MEDS: LISINOPRIL 5 MG TABLET PO SCH (11:18)
[2021-04-14] MEDS: ASPIRIN 81 MG CHEWABLE TABLETS PO SCH (11:18)
[2021-04-14] MEDS: CLOPIDOGREL BISULFATE 75 MG TABLET (FP) PO SCH (11:18)
[2021-04-14] MEDS: BUDESONIDE/FORMETEROL FUMARATE 160/4.5 mcg INHALER IH SCH ×2 (11:26→22:40)
[2021-04-14 12:37] LABS: ANISOCYTOSIS 0; HELMET CELLS 0; HOWELL-JOLLY BODIES 0; MACROCYTOSIS 0; OVALOCYTE 0; PLATELET ESTIMATE NORMAL; ROULEAU 0; SICKELED CELLS 0; TARGET CELLS 0; TEAR DROP CELLS 0; TOXIC GRANULATION 0
[2021-04-14] MEDS: SODIUM CHLORIDE 0.45% 1,000 ML IV SCH (15:55)
[2021-04-14] MEDS ORDERED: AZTREONAM 1 GM VIAL (RESTRICTED TO ID) ONE (18:13)
[2021-04-14] MEDS: AZTREONAM 1 GM in DEXTROSE 5%-WATER - 50 ML IVPB SCH (18:35)
[2021-04-14] MEDS: ROSUVASTATIN CA 10 MG TABLET (FP) PO SCH (21:33)
[2021-04-14] MEDS: QUEtiapine FUMARATE 25 MG TABLET PO SCH (21:33)
[2021-04-15] MEDS ORDERED: AZTREONAM 1 GM VIAL (RESTRICTED TO ID) ONE ×2 (00:36→08:43)
[2021-04-15] MEDS: AZTREONAM 1 GM in DEXTROSE 5%-WATER - 50 ML IVPB SCH ×3 (03:00→17:34)
[2021-04-15] MEDS: SODIUM CHLORIDE 0.45% 1,000 ML IV SCH (03:00)
[2021-04-15] MEDS: HEPARIN NA (PORCINE) 5,000 UNITS/ML 1ML VIAL SQ SCH ×3 (06:10→21:09)
[2021-04-15 08:28] LABS: BASO % 0.3 % (0-2.0); EOS % 0.6 % (0-4.5); HEMATOCRIT 42.9 % (35.4-49); HEMOGLOBIN 14.5 GM/dL (11.7-16.9); LYMPH % 7.2 % (8-40); MCH 29.9 pg (25.7-33.7); MCHC 33.8 g/dl (32.0-35.9); MEAN CELL VOLUME 88.3 fl (80-96); MEAN PLT VOLUME 9.5 fl (7.5-11.1); MONO % 7.3 % (3.8-10.2); NEUT % 84.6 % (42.8-82.8); PLATELET COUNT 193 10^3/uL (134-434); RBC 4.86 M/mm3 (4.00-5.60); RDW 14.6 % (11.9-15.9); WHITE BLOOD COUNT 12.5 K/mm3 (4.0-10.0)
[2021-04-15] MEDS ORDERED: DEXTROSE 5%-WATER - 50 ML IVPB ONE (08:44)
[2021-04-15 08:50] LABS: CALCIUM 8.2 mg/dL (8.5-10.1)
[2021-04-15 08:51] LABS: ALBUMIN 2.5 g/dl (3.4-5.0); BLOOD UREA NITROGEN 30.2 mg/dL (7-18); MAGNESIUM 2.9 mg/dL (1.8-2.4)
[2021-04-15 08:53] LABS: CREATININE 0.9 mg/dL (0.55-1.3); PHOSPHOROUS 2.3 mg/dL (2.5-4.9)
[2021-04-15 08:54] LABS: BILIRUBIN,TOTAL 0.9 mg/dL (0.2-1); TOT PROT 6.6 g/dl (6.4-8.2)
[2021-04-15] MEDS: LISINOPRIL 5 MG TABLET PO SCH (09:26)
[2021-04-15] MEDS: ASPIRIN 81 MG CHEWABLE TABLETS PO SCH (09:26)
[2021-04-15] MEDS: CLOPIDOGREL BISULFATE 75 MG TABLET (FP) PO SCH (09:26)
[2021-04-15] MEDS: BUDESONIDE/FORMETEROL FUMARATE 160/4.5 mcg INHALER IH SCH ×2 (09:36→21:15)
[2021-04-15] MEDS: DEXTROSE 5%-WATER - 1,000 ML IV SCH (14:20)
[2021-04-15] MEDS ORDERED: POTASSIUM PHOSPHATE 15 MM in DEXTROSE 5%-WATER - 250 ML IVPB ONE (15:00)
[2021-04-15] MEDS ORDERED: PT OWN MED DRAWER 7, Y5N ONE (17:05)
[2021-04-15] MEDS: ROSUVASTATIN CA 10 MG TABLET (FP) PO SCH (21:09)
[2021-04-15] MEDS: QUEtiapine FUMARATE 25 MG TABLET PO SCH (21:09)
[2021-04-16] MEDS ORDERED: AZTREONAM 1 GM VIAL (RESTRICTED TO ID) ONE ×3 (02:06→17:09)
[2021-04-16] MEDS ORDERED: DEXTROSE 5%-WATER - 50 ML IVPB ONE ×3 (02:07→17:09)
[2021-04-16] MEDS: AZTREONAM 1 GM in DEXTROSE 5%-WATER - 50 ML IVPB SCH ×3 (02:12→17:12)
[2021-04-16] MEDS: DEXTROSE 5%-WATER - 1,000 ML IV SCH (02:49)
[2021-04-16] MEDS: HEPARIN NA (PORCINE) 5,000 UNITS/ML 1ML VIAL SQ SCH ×3 (05:43→22:23)
[2021-04-16 07:24] LABS: BASO % 0.3 % (0-2.0); EOS % 0.8 % (0-4.5); HEMATOCRIT 40.2 % (35.4-49); HEMOGLOBIN 13.7 GM/dL (11.7-16.9); LYMPH % 6.7 % (8-40); MCH 30.1 pg (25.7-33.7); MCHC 34.2 g/dl (32.0-35.9); MEAN CELL VOLUME 87.9 fl (80-96); MEAN PLT VOLUME 9.5 fl (7.5-11.1); MONO % 8.4 % (3.8-10.2); NEUT % 83.8 % (42.8-82.8); PLATELET COUNT 150 10^3/uL (134-434); RBC 4.57 M/mm3 (4.00-5.60); RDW 14.2 % (11.9-15.9); WHITE BLOOD COUNT 10.3 K/mm3 (4.0-10.0)
[2021-04-16 07:52] LABS: BLOOD UREA NITROGEN 17.9 mg/dL (7-18)
[2021-04-16 07:53] LABS: ALBUMIN 2.3 g/dl (3.4-5.0); MAGNESIUM 2.3 mg/dL (1.8-2.4)
[2021-04-16 07:54] LABS: CALCIUM 7.9 mg/dL (8.5-10.1)
[2021-04-16 07:56] LABS: CREATININE 0.8 mg/dL (0.55-1.3)
[2021-04-16 07:57] LABS: BILIRUBIN,TOTAL 0.8 mg/dL (0.2-1); TOT PROT 6.3 g/dl (6.4-8.2)
[2021-04-16] MEDS ORDERED: DEXTROSE 5%-WATER - 1,000 ML IV SCH (08:38)
[2021-04-16] MEDS: CLOPIDOGREL BISULFATE 75 MG TABLET (FP) PO SCH (09:10)
[2021-04-16] MEDS: ASPIRIN 81 MG CHEWABLE TABLETS PO SCH (09:10)
[2021-04-16] MEDS: LISINOPRIL 5 MG TABLET PO SCH (09:10)
[2021-04-16] MEDS: BUDESONIDE/FORMETEROL FUMARATE 160/4.5 mcg INHALER IH SCH ×2 (09:13→22:44)
[2021-04-16] MEDS: AMINO ACIDS 4.25%/D5W 1,000 ML IV SCH (14:05)
[2021-04-16] MEDS: ROSUVASTATIN CA 10 MG TABLET (FP) PO SCH (22:22)
[2021-04-16] MEDS: QUEtiapine FUMARATE 25 MG TABLET PO SCH (22:23)
[2021-04-17] MEDS ORDERED: AZTREONAM 1 GM VIAL (RESTRICTED TO ID) ONE ×3 (02:14→17:09)
[2021-04-17] MEDS ORDERED: DEXTROSE 5%-WATER - 50 ML IVPB ONE ×3 (02:15→17:10)
[2021-04-17] MEDS: AZTREONAM 1 GM in DEXTROSE 5%-WATER - 50 ML IVPB SCH ×3 (02:16→17:07)
[2021-04-17] MEDS: HEPARIN NA (PORCINE) 5,000 UNITS/ML 1ML VIAL SQ SCH ×3 (05:35→21:16)
[2021-04-17] MEDS: AMINO ACIDS 4.25%/D5W 1,000 ML IV SCH ×2 (06:54→14:59)
[2021-04-17 07:49] LABS: BASO % 0.4 % (0-2.0); EOS % 0.7 % (0-4.5); HEMATOCRIT 40.5 % (35.4-49); HEMOGLOBIN 13.9 GM/dL (11.7-16.9); MCH 29.9 pg (25.7-33.7); MCHC 34.3 g/dl (32.0-35.9); MEAN CELL VOLUME 87.2 fl (80-96); MEAN PLT VOLUME 9.9 fl (7.5-11.1); MONO % 13.4 % (3.8-10.2); NEUT % 77.5 % (42.8-82.8); PLATELET COUNT 121 10^3/uL (134-434); RBC 4.65 M/mm3 (4.00-5.60); RDW 13.7 % (11.9-15.9); WHITE BLOOD COUNT 10.7 K/mm3 (4.0-10.0)
[2021-04-17 08:06] LABS: ALBUMIN 2.2 g/dl (3.4-5.0); BLOOD UREA NITROGEN 19.1 mg/dL (7-18); CALCIUM 7.9 mg/dL (8.5-10.1)
[2021-04-17 08:07] LABS: MAGNESIUM 2.2 mg/dL (1.8-2.4)
[2021-04-17 08:10] LABS: BILIRUBIN,TOTAL 0.7 mg/dL (0.2-1); CREATININE 0.7 mg/dL (0.55-1.3); PHOSPHOROUS 1.8 mg/dL (2.5-4.9)
[2021-04-17 08:11] LABS: TOT PROT 6.4 g/dl (6.4-8.2)
[2021-04-17] MEDS: ASPIRIN 81 MG CHEWABLE TABLETS PO SCH (10:05)
[2021-04-17] MEDS: LISINOPRIL 5 MG TABLET PO SCH (10:05)
[2021-04-17] MEDS: CLOPIDOGREL BISULFATE 75 MG TABLET (FP) PO SCH (10:05)
[2021-04-17] MEDS: BUDESONIDE/FORMETEROL FUMARATE 160/4.5 mcg INHALER IH SCH ×2 (10:06→21:21)
[2021-04-17] MEDS ORDERED: AMINO ACIDS 4.25%/D5W 1,000 ML IV SCH (10:47)
[2021-04-17] MEDS ORDERED: SODIUM PHOSPHATE - 20 MM in SODIUM CHLORIDE 250 ML IVPB ONE (12:00)
[2021-04-17] MEDS: metoPROLOL SUCCINATE 25 MG TAB.SR.24H (FP) PO SCH (14:59)
[2021-04-17] MEDS: QUEtiapine FUMARATE 25 MG TABLET PO SCH (21:43)
[2021-04-17] MEDS: ROSUVASTATIN CA 10 MG TABLET (FP) PO SCH (21:43)
[2021-04-18] MEDS ORDERED: AZTREONAM 1 GM VIAL (RESTRICTED TO ID) ONE ×2 (02:27→09:31)
[2021-04-18] MEDS ORDERED: DEXTROSE 5%-WATER - 50 ML IVPB ONE ×2 (02:27→09:32)
[2021-04-18] MEDS: AZTREONAM 1 GM in DEXTROSE 5%-WATER - 50 ML IVPB SCH ×2 (02:30→10:35)
[2021-04-18] MEDS: HEPARIN NA (PORCINE) 5,000 UNITS/ML 1ML VIAL SQ SCH ×3 (06:02→14:32)
[2021-04-18 07:30] LABS: BASO % 0.4 % (0-2.0); EOS % 0.5 % (0-4.5); HEMATOCRIT 39.6 % (35.4-49); HEMOGLOBIN 13.6 GM/dL (11.7-16.9); LYMPH % 8.4 % (8-40); MCH 29.9 pg (25.7-33.7); MCHC 34.4 g/dl (32.0-35.9); MEAN CELL VOLUME 86.8 fl (80-96); MEAN PLT VOLUME 9.8 fl (7.5-11.1); MONO % 11.1 % (3.8-10.2); NEUT % 79.6 % (42.8-82.8); PLATELET COUNT 131 10^3/uL (134-434); RBC 4.56 M/mm3 (4.00-5.60); RDW 13.8 % (11.9-15.9); WHITE BLOOD COUNT 10.7 K/mm3 (4.0-10.0)
[2021-04-18 08:25] LABS: ALBUMIN 2.3 g/dl (3.4-5.0); BLOOD UREA NITROGEN 25.5 mg/dL (7-18); CALCIUM 8.3 mg/dL (8.5-10.1); MAGNESIUM 2.4 mg/dL (1.8-2.4)
[2021-04-18 08:27] LABS: CREATININE 0.9 mg/dL (0.55-1.3)
[2021-04-18 08:28] LABS: PHOSPHOROUS 1.6 mg/dL (2.5-4.9)
[2021-04-18 08:29] LABS: TOT PROT 6.6 g/dl (6.4-8.2)
[2021-04-18] MEDS: ASPIRIN 81 MG CHEWABLE TABLETS PO SCH (10:35)
[2021-04-18] MEDS: CLOPIDOGREL BISULFATE 75 MG TABLET (FP) PO SCH (10:36)
[2021-04-18] MEDS: LISINOPRIL 5 MG TABLET PO SCH (10:36)
[2021-04-18] MEDS: BUDESONIDE/FORMETEROL FUMARATE 160/4.5 mcg INHALER IH SCH ×2 (10:36→21:48)
[2021-04-18] MEDS: metoPROLOL SUCCINATE 25 MG TAB.SR.24H (FP) PO SCH (10:36)
[2021-04-18] MEDS: AMINO ACIDS 4.25%/D5W 1,000 ML IV SCH ×2 (11:42→12:21)
[2021-04-18] MEDS ORDERED: SODIUM PHOSPHATE - 30 MM in SODIUM CHLORIDE 500 ML IVPB ONE (13:15)
[2021-04-18] MEDS ORDERED: ACETAMINOPHEN 1000 MG/100 ML VIAL IVPB ONE (15:04)
[2021-04-18] MEDS: ROSUVASTATIN CA 10 MG TABLET (FP) PO SCH (21:47)
[2021-04-18] MEDS: QUEtiapine FUMARATE 25 MG TABLET PO SCH (21:47)
[2021-04-19] MEDS: AMINO ACIDS 4.25%/D5W 1,000 ML IV SCH ×2 (05:35→23:25)
[2021-04-19 07:30] LABS: BASO % 0.2 % (0-2.0); EOS % 0.7 % (0-4.5); HEMATOCRIT 37.9 % (35.4-49); HEMOGLOBIN 12.8 GM/dL (11.7-16.9); LYMPH % 7.6 % (8-40); MCHC 33.7 g/dl (32.0-35.9); MEAN CELL VOLUME 85.9 fl (80-96); MEAN PLT VOLUME 9.9 fl (7.5-11.1); MONO % 12.7 % (3.8-10.2); NEUT % 78.8 % (42.8-82.8); PLATELET COUNT 112 10^3/uL (134-434); RBC 4.41 M/mm3 (4.00-5.60); RDW 13.7 % (11.9-15.9)
[2021-04-19 07:45] LABS: BLOOD UREA NITROGEN 20.1 mg/dL (7-18)
[2021-04-19 07:46] LABS: MAGNESIUM 2.2 mg/dL (1.8-2.4)
[2021-04-19 07:47] LABS: CALCIUM 7.9 mg/dL (8.5-10.1)
[2021-04-19 07:48] LABS: CREATININE 0.7 mg/dL (0.55-1.3); PHOSPHOROUS 1.8 mg/dL (2.5-4.9)
[2021-04-19 07:49] LABS: TOT PROT 6.3 g/dl (6.4-8.2)
[2021-04-19 07:52] LABS: BILIRUBIN,TOTAL 0.4 mg/dL (0.2-1)
[2021-04-19] MEDS ORDERED: SODIUM PHOSPHATE - 30 MM in SODIUM CHLORIDE 500 ML IVPB ONE (09:30)
[2021-04-19] MEDS: metoPROLOL SUCCINATE 25 MG TAB.SR.24H (FP) PO SCH (10:14)
[2021-04-19] MEDS: LISINOPRIL 5 MG TABLET PO SCH (10:14)
[2021-04-19] MEDS: BUDESONIDE/FORMETEROL FUMARATE 160/4.5 mcg INHALER IH SCH ×2 (10:14→22:09)
[2021-04-19] MEDS ORDERED: ALBUTEROL SO4 HFA INHALER IH PRN (15:06)
[2021-04-19] MEDS ORDERED: ACETAMINOPHEN 325 MG TABLET (FP) PO PRN (15:06)
[2021-04-19] MEDS: ROSUVASTATIN CA 10 MG TABLET (FP) PO SCH (22:08)
[2021-04-19] MEDS: QUEtiapine FUMARATE 25 MG TABLET PO SCH (22:08)
[2021-04-19] MEDS ORDERED: ALBUTEROL SO4 0.083% IH SOL 2.5 MG/3 ML VIAL.NEB. NEB ONE (22:19)
[2021-04-20 09:01] LABS: BLOOD UREA NITROGEN 15.9 mg/dL (7-18)
[2021-04-20 09:04] LABS: CREATININE 0.6 mg/dL (0.55-1.3); PHOSPHOROUS 1.6 mg/dL (2.5-4.9)
[2021-04-20 09:05] LABS: BILIRUBIN,TOTAL 0.9 mg/dL (0.2-1)
[2021-04-20 09:06] LABS: TOT PROT 6.5 g/dl (6.4-8.2)
[2021-04-20] MEDS ORDERED: metoPROLOL SUCCINATE 25 MG TAB.SR.24H (FP) PO SCH (10:00)
[2021-04-20] MEDS: metoPROLOL SUCCINATE 25 MG TAB.SR.24H (FP) PO SCH (11:11)
[2021-04-20] MEDS: LISINOPRIL 5 MG TABLET PO SCH (11:11)
[2021-04-20] MEDS: BUDESONIDE/FORMETEROL FUMARATE 160/4.5 mcg INHALER IH SCH ×2 (11:12→22:25)
[2021-04-20] MEDS ORDERED: SODIUM PHOSPHATE - 30 MM in DEXTROSE 5%-WATER - 250 ML IVPB ONE (14:40)
[2021-04-20] MEDS ORDERED: SODIUM PHOSPHATE - 30 MM in DEXTROSE 5%-WATER - 500 ML IVPB ONE (15:45)
[2021-04-20] MEDS: ALBUTEROL SO4 2.5/IPRATROPIUM 0.5 INH SOL 3 ML VIAL.NEB. NEB PRN ×2 (16:55→20:39)
[2021-04-20] MEDS ORDERED: ALBUTEROL SO4 2.5/IPRATROPIUM 0.5 INH SOL 3 ML VIAL.NEB. NEB ONE (20:54)
[2021-04-20] MEDS: MULTIVIT INJ. ADULT COMBO WITH VIT K 1 COMBO 10 ML VIAL IV SCH (21:36)
[2021-04-20] MEDS: AMINO ACIDS 4.25%/D5W 1,000 ML IV SCH (21:55)
[2021-04-20] MEDS: FAT EMULSION/OLIVE/SOY/PHOSPHO 250 ML IV SCH (21:56)
[2021-04-20] MEDS ORDERED: FAT EMULSION/OLIVE/SOY (CLINOLIPID) 250 ML EMULSION IV SCH (22:00)
[2021-04-20] MEDS ORDERED: methylPREDNISolone NA SUCC 125 MG/2 ML VIAL IVPUSH ONE (22:03)
[2021-04-20] MEDS ORDERED: ACETAMINOPHEN 1000 MG/100 ML VIAL IVPB ONE (22:05)
[2021-04-20] MEDS ORDERED: ALBUTEROL SO4 0.083% IH SOL 2.5 MG/3 ML VIAL.NEB. NEB ONE (22:06)
[2021-04-20] MEDS: ROSUVASTATIN CA 10 MG TABLET (FP) PO SCH (22:24)
[2021-04-20] MEDS: QUEtiapine FUMARATE 25 MG TABLET PO SCH (22:24)
[2021-04-20 23:14] LABS: ARTERIAL BLD GAS O2 SATURATION 96.4 % (95-98); ARTERIAL BLOOD GAS BASE EXCESS -0.1 mmol/L (-2-2); ARTERIAL BLOOD GAS PO2 81.2 mmHg (80-100); ARTERIAL BLOOD GAS pH 7.444 (7.350-7.450)
[2021-04-20 23:15] LABS: ALLENS TEST POSITIVE
[2021-04-20 23:16] LABS: BASO % 0.5 % (0-2.0); EOS % 0.4 % (0-4.5); HEMATOCRIT 35.3 % (35.4-49); HEMOGLOBIN 11.8 GM/dL (11.7-16.9); LYMPH % 5.9 % (8-40); MCH 28.7 pg (25.7-33.7); MCHC 33.3 g/dl (32.0-35.9); MEAN CELL VOLUME 86.1 fl (80-96); MEAN PLT VOLUME 9.3 fl (7.5-11.1); MONO % 16.2 % (3.8-10.2); PLATELET COUNT 136 10^3/uL (134-434); RBC 4.11 M/mm3 (4.00-5.60); WHITE BLOOD COUNT 14.1 K/mm3 (4.0-10.0)
[2021-04-20 23:35] LABS: CALCIUM 8.1 mg/dL (8.5-10.1)
[2021-04-20 23:36] LABS: ALBUMIN 1.9 g/dl (3.4-5.0); BLOOD UREA NITROGEN 17.4 mg/dL (7-18)
[2021-04-20 23:39] LABS: CREATININE 0.7 mg/dL (0.55-1.3)
[2021-04-20 23:40] LABS: BILIRUBIN,TOTAL 0.9 mg/dL (0.2-1); TOT PROT 6.6 g/dl (6.4-8.2)
[2021-04-20 23:44] LABS: N-TERMINAL BNP 886.2 pg/ml (5-125)
[2021-04-21 09:34] LABS: HEMOGLOBIN 12.5 GM/dL (11.7-16.9); MCH 29.6 pg (25.7-33.7); MCHC 33.8 g/dl (32.0-35.9); MEAN CELL VOLUME 87.6 fl (80-96); MEAN PLT VOLUME 9.7 fl (7.5-11.1); PLATELET COUNT 161 10^3/uL (134-434); RBC 4.23 M/mm3 (4.00-5.60); RDW 13.9 % (11.9-15.9); WHITE BLOOD COUNT 15.6 K/mm3 (4.0-10.0)
[2021-04-21 10:32] LABS: BLOOD UREA NITROGEN 20.3 mg/dL (7-18); CALCIUM 8.7 mg/dL (8.5-10.1); MAGNESIUM 2.4 mg/dL (1.8-2.4)
[2021-04-21 10:34] LABS: PHOSPHOROUS 2.2 mg/dL (2.5-4.9)
[2021-04-21 10:35] LABS: CREATININE 0.8 mg/dL (0.55-1.3)
[2021-04-21 10:36] LABS: BILIRUBIN,TOTAL 0.7 mg/dL (0.2-1); TOT PROT 7.2 g/dl (6.4-8.2)
[2021-04-21] MEDS: LISINOPRIL 5 MG TABLET PO SCH (11:21)
[2021-04-21] MEDS: metoPROLOL SUCCINATE 25 MG TAB.SR.24H (FP) PO SCH (11:21)
[2021-04-21] MEDS: BUDESONIDE/FORMETEROL FUMARATE 160/4.5 mcg INHALER IH SCH ×2 (12:00→22:00)
[2021-04-21 12:22] LABS: ANISOCYTOSIS 0; MACROCYTOSIS 0; PLATELET ESTIMATE DECREASED
[2021-04-21] MEDS ORDERED: PT OWN MED DRAWER 7, Y5N ONE (16:30)
[2021-04-21] MEDS: AMINO ACIDS 4.25%/D5W 1,000 ML IV SCH (17:13)
[2021-04-21] MEDS: MULTIVIT INJ. ADULT COMBO WITH VIT K 1 COMBO 10 ML VIAL IV SCH (17:13)
[2021-04-21] MEDS: FAT EMULSION/OLIVE/SOY/PHOSPHO 250 ML IV SCH (21:58)
[2021-04-21] MEDS: QUEtiapine FUMARATE 25 MG TABLET PO SCH (21:59)
[2021-04-21] MEDS: ROSUVASTATIN CA 10 MG TABLET (FP) PO SCH (21:59)
[2021-04-22] MEDS: AMINO ACIDS 4.25%/D5W 1,000 ML IV SCH ×2 (05:01→18:23)
[2021-04-22] MEDS: LISINOPRIL 5 MG TABLET PO SCH (10:22)
[2021-04-22] MEDS: BUDESONIDE/FORMETEROL FUMARATE 160/4.5 mcg INHALER IH SCH ×2 (10:23→23:40)
[2021-04-22] MEDS: metoPROLOL SUCCINATE 25 MG TAB.SR.24H (FP) PO SCH (10:27)
[2021-04-22] MEDS ORDERED: PT OWN MED DRAWER 7, Y5N ONE (16:05)
[2021-04-22] MEDS ORDERED: DEXTROSE 5%-WATER 100 ML IVPB ONE (18:14)
[2021-04-22] MEDS ORDERED: MEROPENEM 1 GM VIAL (RESTRICTED TO ID) IVPB ONE (18:14)
[2021-04-22] MEDS: MEROPENEM 1 GM in DEXTROSE 5%-WATER 100 ML IVPB SCH (18:24)
[2021-04-22] MEDS: MULTIVIT INJ. ADULT COMBO WITH VIT K 1 COMBO 10 ML VIAL IV SCH (19:10)
[2021-04-22] MEDS: FAT EMULSION/OLIVE/SOY/PHOSPHO 250 ML IV SCH (23:36)
[2021-04-22] MEDS: ROSUVASTATIN CA 10 MG TABLET (FP) PO SCH (23:39)
[2021-04-22] MEDS: QUEtiapine FUMARATE 25 MG TABLET PO SCH (23:40)
[2021-04-23] MEDS: AMINO ACIDS 4.25%/D5W 1,000 ML IV SCH ×3 (00:04→17:59)
[2021-04-23] MEDS ORDERED: MEROPENEM 1 GM VIAL (RESTRICTED TO ID) IVPB ONE ×3 (01:58→17:49)
[2021-04-23] MEDS ORDERED: DEXTROSE 5%-WATER 100 ML IVPB ONE ×3 (01:58→17:49)
[2021-04-23] MEDS: MEROPENEM 1 GM in DEXTROSE 5%-WATER 100 ML IVPB SCH ×3 (02:40→17:59)
[2021-04-23 10:25] LABS: BASO % 0.4 % (0-2.0); EOS % 1.2 % (0-4.5); HEMATOCRIT 35.2 % (35.4-49); HEMOGLOBIN 12.2 GM/dL (11.7-16.9); LYMPH % 11.7 % (8-40); MCH 29.5 pg (25.7-33.7); MCHC 34.5 g/dl (32.0-35.9); MEAN CELL VOLUME 85.4 fl (80-96); MONO % 6.2 % (3.8-10.2); NEUT % 80.5 % (42.8-82.8); PLATELET COUNT 183 10^3/uL (134-434); RBC 4.12 M/mm3 (4.00-5.60); RDW 13.9 % (11.9-15.9); WHITE BLOOD COUNT 10.5 K/mm3 (4.0-10.0)
[2021-04-23 10:44] LABS: INR 1.15 (0.83-1.09); PROTHROMBIN TIME (PATIENT) 14.2 SEC (9.7-13.0)
[2021-04-23 10:46] LABS: ACTIVATED PTT 26.9 SECONDS (25.2-36.5)
[2021-04-23] MEDS: metoPROLOL SUCCINATE 25 MG TAB.SR.24H (FP) PO SCH (11:08)
[2021-04-23] MEDS: LISINOPRIL 5 MG TABLET PO SCH (11:08)
[2021-04-23 11:23] LABS: CALCIUM 8.3 mg/dL (8.5-10.1)
[2021-04-23] MEDS: BUDESONIDE/FORMETEROL FUMARATE 160/4.5 mcg INHALER IH SCH ×2 (11:24→21:26)
[2021-04-23 11:26] LABS: CREATININE 0.6 mg/dL (0.55-1.3)
[2021-04-23] MEDS ORDERED: POTASSIUM PHOSPHATE 15 MM in SODIUM CHLORIDE 250 ML IVPB ONE (13:11)
[2021-04-23] MEDS ORDERED: PT OWN MED DRAWER 7, Y5N ONE ×2 (16:12→20:56)
[2021-04-23] MEDS: MULTIVIT INJ. ADULT COMBO WITH VIT K 1 COMBO 10 ML VIAL IV SCH (17:59)
[2021-04-23] MEDS: FAT EMULSION/OLIVE/SOY/PHOSPHO 250 ML IV SCH (21:25)
[2021-04-23] MEDS: ROSUVASTATIN CA 10 MG TABLET (FP) PO SCH (21:26)
[2021-04-23] MEDS: QUEtiapine FUMARATE 25 MG TABLET PO SCH (21:26)
[2021-04-24] MEDS ORDERED: DEXTROSE 5%-WATER 100 ML IVPB ONE ×3 (01:05→18:13)
[2021-04-24] MEDS ORDERED: MEROPENEM 1 GM VIAL (RESTRICTED TO ID) IVPB ONE ×3 (01:05→18:12)
[2021-04-24] MEDS: MEROPENEM 1 GM in DEXTROSE 5%-WATER 100 ML IVPB SCH ×3 (01:51→18:13)
[2021-04-24 10:01] LABS: BASO % 0.4 % (0-2.0); EOS % 2.9 % (0-4.5); HEMATOCRIT 35.1 % (35.4-49); HEMOGLOBIN 12.2 GM/dL (11.7-16.9); LYMPH % 11.6 % (8-40); MCH 29.7 pg (25.7-33.7); MCHC 34.6 g/dl (32.0-35.9); MEAN CELL VOLUME 85.8 fl (80-96); MEAN PLT VOLUME 8.8 fl (7.5-11.1); MONO % 5.8 % (3.8-10.2); NEUT % 79.3 % (42.8-82.8); PLATELET COUNT 205 10^3/uL (134-434); RDW 13.7 % (11.9-15.9); WHITE BLOOD COUNT 9.1 K/mm3 (4.0-10.0)
[2021-04-24 10:21] LABS: CALCIUM 7.9 mg/dL (8.5-10.1)
[2021-04-24 10:22] LABS: ALBUMIN 1.8 g/dl (3.4-5.0); BLOOD UREA NITROGEN 16.4 mg/dL (7-18)
[2021-04-24 10:25] LABS: CREATININE 0.5 mg/dL (0.55-1.3); PHOSPHOROUS 2.2 mg/dL (2.5-4.9)
[2021-04-24 10:26] LABS: BILIRUBIN,TOTAL 0.7 mg/dL (0.2-1)
[2021-04-24 10:27] LABS: TOT PROT 6.2 g/dl (6.4-8.2)
[2021-04-24] MEDS: LISINOPRIL 5 MG TABLET PO SCH (10:39)
[2021-04-24] MEDS: SPIRONOLACTONE 25 MG TABLET PO SCH (10:39)
[2021-04-24] MEDS: BUDESONIDE/FORMETEROL FUMARATE 160/4.5 mcg INHALER IH SCH ×2 (10:40→23:09)
[2021-04-24] MEDS: metoPROLOL SUCCINATE 25 MG TAB.SR.24H (FP) PO SCH (10:40)
[2021-04-24] MEDS: MULTIVIT INJ. ADULT COMBO WITH VIT K 1 COMBO 10 ML VIAL IV SCH (12:00)
[2021-04-24] MEDS: AMINO ACIDS 4.25%/D5W 1,000 ML IV SCH (12:03)
[2021-04-24] MEDS: FAT EMULSION/OLIVE/SOY/PHOSPHO 250 ML IV SCH (21:41)
[2021-04-24] MEDS: QUEtiapine FUMARATE 25 MG TABLET PO SCH (21:47)
[2021-04-24] MEDS: ROSUVASTATIN CA 10 MG TABLET (FP) PO SCH (21:47)
[2021-04-25] MEDS ORDERED: MEROPENEM 1 GM VIAL (RESTRICTED TO ID) IVPB ONE ×3 (01:02→18:06)
[2021-04-25] MEDS ORDERED: DEXTROSE 5%-WATER 100 ML IVPB ONE ×3 (01:03→18:06)
[2021-04-25] MEDS: MEROPENEM 1 GM in DEXTROSE 5%-WATER 100 ML IVPB SCH ×3 (01:39→18:26)
[2021-04-25] MEDS: AMINO ACIDS 4.25%/D5W 1,000 ML IV SCH (06:35)
[2021-04-25] MEDS: metoPROLOL SUCCINATE 25 MG TAB.SR.24H (FP) PO SCH (09:33)
[2021-04-25] MEDS: SPIRONOLACTONE 25 MG TABLET PO SCH (09:33)
[2021-04-25] MEDS: LISINOPRIL 10 MG TABLET PO SCH (09:33)
[2021-04-25 09:59] LABS: BASO % 0.4 % (0-2.0); EOS % 3.2 % (0-4.5); HEMATOCRIT 36.3 % (35.4-49); HEMOGLOBIN 12.7 GM/dL (11.7-16.9); MCH 29.7 pg (25.7-33.7); MEAN CELL VOLUME 85.1 fl (80-96); MEAN PLT VOLUME 8.9 fl (7.5-11.1); MONO % 5.4 % (3.8-10.2); PLATELET COUNT 218 10^3/uL (134-434); RBC 4.26 M/mm3 (4.00-5.60); RDW 13.9 % (11.9-15.9); WHITE BLOOD COUNT 8.8 K/mm3 (4.0-10.0)
[2021-04-25 10:35] LABS: ALBUMIN 1.9 g/dl (3.4-5.0)
[2021-04-25 10:36] LABS: BLOOD UREA NITROGEN 13.8 mg/dL (7-18); MAGNESIUM 1.6 mg/dL (1.8-2.4)
[2021-04-25 10:38] LABS: PHOSPHOROUS 1.9 mg/dL (2.5-4.9)
[2021-04-25 10:39] LABS: BILIRUBIN,TOTAL 0.8 mg/dL (0.2-1); CREATININE 0.5 mg/dL (0.55-1.3); TOT PROT 6.4 g/dl (6.4-8.2)
[2021-04-25] MEDS: BUDESONIDE/FORMETEROL FUMARATE 160/4.5 mcg INHALER IH SCH ×2 (11:44→21:47)
[2021-04-25 12:52] LABS: ANISOCYTOSIS 1+; MACROCYTOSIS 0; OVALOCYTE 1+; PLATELET ESTIMATE NORMAL; TEAR DROP CELLS 1+
[2021-04-25] MEDS: POTASSIUM CHLORIDE 10 MEQ in AMINO ACIDS 4.25%/D5W 1,000 ML IV SCH (14:17)
[2021-04-25] MEDS: MULTIVIT INJ. ADULT COMBO WITH VIT K 1 COMBO 10 ML VIAL IV SCH (14:17)
[2021-04-25] MEDS ORDERED: LORazepam 2 MG/ML SDV VIAL IM PRN (18:20)
[2021-04-25] MEDS: FAT EMULSION/OLIVE/SOY/PHOSPHO 250 ML IV SCH (21:48)
[2021-04-25] MEDS: ROSUVASTATIN CA 10 MG TABLET (FP) PO SCH (21:53)
[2021-04-25] MEDS: QUEtiapine FUMARATE 25 MG TABLET PO SCH (21:54)
[2021-04-26] MEDS ORDERED: MEROPENEM 1 GM VIAL (RESTRICTED TO ID) IVPB ONE ×3 (01:31→16:56)
[2021-04-26] MEDS ORDERED: DEXTROSE 5%-WATER 100 ML IVPB ONE ×3 (01:31→16:56)
[2021-04-26] MEDS: MEROPENEM 1 GM in DEXTROSE 5%-WATER 100 ML IVPB SCH ×3 (01:52→17:03)
[2021-04-26] MEDS: POTASSIUM CHLORIDE 10 MEQ in AMINO ACIDS 4.25%/D5W 1,000 ML IV SCH (06:27)
[2021-04-26 08:11] LABS: HEMATOCRIT 37.8 % (35.4-49); MCH 29.9 pg (25.7-33.7); MCHC 34.5 g/dl (32.0-35.9); MEAN CELL VOLUME 86.8 fl (80-96); PLATELET COUNT 266 10^3/uL (134-434); RBC 4.36 M/mm3 (4.00-5.60); RDW 13.9 % (11.9-15.9); WHITE BLOOD COUNT 10.7 K/mm3 (4.0-10.0)
[2021-04-26 08:26] LABS: BLOOD UREA NITROGEN 14.1 mg/dL (7-18); CALCIUM 8.4 mg/dL (8.5-10.1)
[2021-04-26 08:29] LABS: CREATININE 0.5 mg/dL (0.55-1.3); PHOSPHOROUS 1.8 mg/dL (2.5-4.9)
[2021-04-26 08:31] LABS: BILIRUBIN,TOTAL 0.5 mg/dL (0.2-1); TOT PROT 6.4 g/dl (6.4-8.2)
[2021-04-26 10:22] LABS: ANISOCYTOSIS 0; MACROCYTOSIS 0; PLATELET ESTIMATE NORMAL
[2021-04-26] MEDS: metoPROLOL SUCCINATE 25 MG TAB.SR.24H (FP) PO SCH (10:30)
[2021-04-26] MEDS: SPIRONOLACTONE 25 MG TABLET PO SCH (10:30)
[2021-04-26] MEDS: LISINOPRIL 10 MG TABLET PO SCH (10:30)
[2021-04-26] MEDS: BUDESONIDE/FORMETEROL FUMARATE 160/4.5 mcg INHALER IH SCH ×2 (10:32→23:38)
[2021-04-26] MEDS ORDERED: SODIUM PHOSPHATE - 20 MM in SODIUM CHLORIDE 250 ML IVPB ONE (17:00)
[2021-04-26] MEDS: FAT EMULSION/OLIVE/SOY/PHOSPHO 250 ML IV SCH (21:11)
[2021-04-26] MEDS: ROSUVASTATIN CA 10 MG TABLET (FP) PO SCH (23:35)
[2021-04-26] MEDS: QUEtiapine FUMARATE 25 MG TABLET PO SCH (23:35)
[2021-04-27] MEDS ORDERED: MEROPENEM 1 GM VIAL (RESTRICTED TO ID) IVPB ONE ×3 (01:08→19:27)
[2021-04-27] MEDS ORDERED: DEXTROSE 5%-WATER 100 ML IVPB ONE ×3 (01:08→19:28)
[2021-04-27] MEDS: MEROPENEM 1 GM in DEXTROSE 5%-WATER 100 ML IVPB SCH ×3 (01:13→19:46)
[2021-04-27] MEDS: POTASSIUM CHLORIDE 10 MEQ in AMINO ACIDS 4.25%/D5W 1,000 ML IV SCH ×2 (03:53→19:23)
[2021-04-27] MEDS: MULTIVIT INJ. ADULT COMBO WITH VIT K 1 COMBO 10 ML VIAL IV SCH ×2 (03:53→19:24)
[2021-04-27 08:45] LABS: BASO % 0.3 % (0-2.0); EOS % 3.2 % (0-4.5); HEMATOCRIT 38.2 % (35.4-49); HEMOGLOBIN 13.4 GM/dL (11.7-16.9); LYMPH % 12.7 % (8-40); MCH 29.8 pg (25.7-33.7); MCHC 35.1 g/dl (32.0-35.9); MEAN CELL VOLUME 85.1 fl (80-96); MEAN PLT VOLUME 8.7 fl (7.5-11.1); NEUT % 76.8 % (42.8-82.8); PLATELET COUNT 263 10^3/uL (134-434); RBC 4.48 M/mm3 (4.00-5.60); RDW 14.1 % (11.9-15.9); WHITE BLOOD COUNT 9.4 K/mm3 (4.0-10.0)
[2021-04-27 09:33] LABS: PHOSPHOROUS 2.1 mg/dL (2.5-4.9)
[2021-04-27 09:34] LABS: CREATININE 0.5 mg/dL (0.55-1.3)
[2021-04-27 09:35] LABS: BILIRUBIN,TOTAL 0.6 mg/dL (0.2-1); CALCIUM 8.6 mg/dL (8.5-10.1); TOT PROT 6.6 g/dl (6.4-8.2)
[2021-04-27 09:36] LABS: BLOOD UREA NITROGEN 12.9 mg/dL (7-18); MAGNESIUM 1.6 mg/dL (1.8-2.4)
[2021-04-27] MEDS: metoPROLOL SUCCINATE 25 MG TAB.SR.24H (FP) PO SCH (12:45)
[2021-04-27] MEDS: SPIRONOLACTONE 25 MG TABLET PO SCH (12:45)
[2021-04-27] MEDS: BUDESONIDE/FORMETEROL FUMARATE 160/4.5 mcg INHALER IH SCH (12:46)
[2021-04-27] MEDS: LISINOPRIL 10 MG TABLET PO SCH (12:46)
[2021-04-27] MEDS: FAT EMULSION/OLIVE/SOY/PHOSPHO 250 ML IV SCH (21:19)
[2021-04-28] MEDS: BUDESONIDE/FORMETEROL FUMARATE 160/4.5 mcg INHALER IH SCH ×3 (00:15→22:34)
[2021-04-28] MEDS: ROSUVASTATIN CA 10 MG TABLET (FP) PO SCH ×2 (00:15→22:34)
[2021-04-28] MEDS: QUEtiapine FUMARATE 25 MG TABLET PO SCH ×2 (00:15→22:34)
[2021-04-28] MEDS ORDERED: MEROPENEM 1 GM VIAL (RESTRICTED TO ID) IVPB ONE (01:32)
[2021-04-28] MEDS ORDERED: DEXTROSE 5%-WATER 100 ML IVPB ONE (01:33)
[2021-04-28] MEDS: POTASSIUM CHLORIDE 10 MEQ in AMINO ACIDS 4.25%/D5W 1,000 ML IV SCH ×3 (01:49→22:33)
[2021-04-28] MEDS: MULTIVIT INJ. ADULT COMBO WITH VIT K 1 COMBO 10 ML VIAL IV SCH ×2 (01:50→22:34)
[2021-04-28] MEDS: MEROPENEM 1 GM in DEXTROSE 5%-WATER 100 ML IVPB SCH (01:50)
[2021-04-28] MEDS: SPIRONOLACTONE 25 MG TABLET PO SCH (10:31)
[2021-04-28] MEDS: metoPROLOL SUCCINATE 25 MG TAB.SR.24H (FP) PO SCH (10:32)
[2021-04-28] MEDS: LISINOPRIL 10 MG TABLET PO SCH (10:32)
[2021-04-28 11:09] LABS: BASO % 0.4 % (0-2.0); HEMATOCRIT 37.6 % (35.4-49); LYMPH % 12.2 % (8-40); MCH 29.7 pg (25.7-33.7); MCHC 34.6 g/dl (32.0-35.9); MEAN CELL VOLUME 85.8 fl (80-96); MEAN PLT VOLUME 9.3 fl (7.5-11.1); MONO % 9.3 % (3.8-10.2); NEUT % 76.1 % (42.8-82.8); PLATELET COUNT 310 10^3/uL (134-434); RBC 4.38 M/mm3 (4.00-5.60); RDW 14.1 % (11.9-15.9); WHITE BLOOD COUNT 9.2 K/mm3 (4.0-10.0)
[2021-04-28 11:34] LABS: ALBUMIN 2.2 g/dl (3.4-5.0); BILIRUBIN,TOTAL 0.5 mg/dL (0.2-1); BLOOD UREA NITROGEN 12.2 mg/dL (7-18); CALCIUM 8.5 mg/dL (8.5-10.1); CREATININE 0.5 mg/dL (0.55-1.3); MAGNESIUM 1.6 mg/dL (1.8-2.4); PHOSPHOROUS 1.9 mg/dL (2.5-4.9); TOT PROT 6.8 g/dl (6.4-8.2)
[2021-04-28] MEDS ORDERED: PT OWN MED DRAWER 7, Y5N ONE (22:16)
[2021-04-28] MEDS: FAT EMULSION/OLIVE/SOY/PHOSPHO 250 ML IV SCH (22:32)
[2021-04-29] MEDS: POTASSIUM CHLORIDE 10 MEQ in AMINO ACIDS 4.25%/D5W 1,000 ML IV SCH ×3 (05:37→23:15)
[2021-04-29] MEDS: LISINOPRIL 10 MG TABLET PO SCH (09:30)
[2021-04-29] MEDS: SPIRONOLACTONE 25 MG TABLET PO SCH (09:30)
[2021-04-29] MEDS: MULTIVIT INJ. ADULT COMBO WITH VIT K 1 COMBO 10 ML VIAL IV SCH (09:30)
[2021-04-29] MEDS: BUDESONIDE/FORMETEROL FUMARATE 160/4.5 mcg INHALER IH SCH ×2 (09:31→21:07)
[2021-04-29] MEDS: metoPROLOL SUCCINATE 25 MG TAB.SR.24H (FP) PO SCH (09:31)
[2021-04-29] MEDS: ROSUVASTATIN CA 10 MG TABLET (FP) PO SCH (21:07)
[2021-04-29] MEDS: QUEtiapine FUMARATE 25 MG TABLET PO SCH (21:07)
[2021-04-29] MEDS: FAT EMULSION/OLIVE/SOY/PHOSPHO 250 ML IV SCH (21:08)
[2021-04-30 09:00] LABS: ALBUMIN 2.4 g/dl (3.4-5.0); BLOOD UREA NITROGEN 16.6 mg/dL (7-18); MAGNESIUM 1.6 mg/dL (1.8-2.4)
[2021-04-30 09:03] LABS: CREATININE 0.5 mg/dL (0.55-1.3); PHOSPHOROUS 2.3 mg/dL (2.5-4.9)
[2021-04-30 09:04] LABS: BILIRUBIN,TOTAL 0.7 mg/dL (0.2-1)
[2021-04-30 09:05] LABS: TOT PROT 7.1 g/dl (6.4-8.2)
[2021-04-30] MEDS: SPIRONOLACTONE 25 MG TABLET PO SCH (10:24)
[2021-04-30] MEDS: LISINOPRIL 10 MG TABLET PO SCH (10:24)
[2021-04-30] MEDS: metoPROLOL SUCCINATE 25 MG TAB.SR.24H (FP) PO SCH (10:25)
[2021-04-30] MEDS: BUDESONIDE/FORMETEROL FUMARATE 160/4.5 mcg INHALER IH SCH ×2 (10:29→21:39)
[2021-04-30] MEDS ORDERED: MAGNESIUM SULF 50% (8.12 MEQ/2 ML-1 GM VIAL) IVPB ONE (13:45)
[2021-04-30] MEDS: POTASSIUM CHLORIDE 10 MEQ in AMINO ACIDS 4.25%/D5W 1,000 ML IV SCH ×2 (14:51→19:41)
[2021-04-30] MEDS: MULTIVIT INJ. ADULT COMBO WITH VIT K 1 COMBO 10 ML VIAL IV SCH (14:52)
[2021-04-30] MEDS ORDERED: SODIUM PHOSPHATE - 30 MM in SODIUM CHLORIDE 500 ML IVPB ONE (15:00)
[2021-04-30] MEDS: ROSUVASTATIN CA 10 MG TABLET (FP) PO SCH (21:38)
[2021-04-30] MEDS: QUEtiapine FUMARATE 25 MG TABLET PO SCH (21:39)
[2021-04-30] MEDS: FAT EMULSION/OLIVE/SOY/PHOSPHO 250 ML IV SCH (21:40)
[2021-05-01] MEDS: SPIRONOLACTONE 25 MG TABLET PO SCH (09:41)
[2021-05-01] MEDS: LISINOPRIL 10 MG TABLET PO SCH (09:41)
[2021-05-01] MEDS: metoPROLOL SUCCINATE 25 MG TAB.SR.24H (FP) PO SCH (09:41)
[2021-05-01] MEDS: BUDESONIDE/FORMETEROL FUMARATE 160/4.5 mcg INHALER IH SCH ×2 (09:42→22:20)
[2021-05-01 10:33] LABS: BASO % 0.5 % (0-2.0); HEMATOCRIT 38.1 % (35.4-49); HEMOGLOBIN 13.2 GM/dL (11.7-16.9); LYMPH % 11.2 % (8-40); MCHC 34.6 g/dl (32.0-35.9); MEAN CELL VOLUME 86.8 fl (80-96); MEAN PLT VOLUME 9.4 fl (7.5-11.1); MONO % 8.4 % (3.8-10.2); NEUT % 78.9 % (42.8-82.8); PLATELET COUNT 328 10^3/uL (134-434); RBC 4.39 M/mm3 (4.00-5.60); RDW 14.3 % (11.9-15.9); WHITE BLOOD COUNT 9.7 K/mm3 (4.0-10.0)
[2021-05-01 10:54] LABS: CALCIUM 8.6 mg/dL (8.5-10.1)
[2021-05-01 10:55] LABS: ALBUMIN 2.4 g/dl (3.4-5.0); MAGNESIUM 1.8 mg/dL (1.8-2.4)
[2021-05-01 10:58] LABS: CREATININE 0.5 mg/dL (0.55-1.3)
[2021-05-01 10:59] LABS: BILIRUBIN,TOTAL 0.6 mg/dL (0.2-1); TOT PROT 6.9 g/dl (6.4-8.2)
[2021-05-01] MEDS: POTASSIUM CHLORIDE 10 MEQ in AMINO ACIDS 4.25%/D5W 1,000 ML IV SCH (14:08)
[2021-05-01] MEDS ORDERED: PT OWN MED DRAWER 7, Y5N ONE (21:20)
[2021-05-01] MEDS: FAT EMULSION/OLIVE/SOY/PHOSPHO 250 ML IV SCH (21:26)
[2021-05-01] MEDS: ROSUVASTATIN CA 10 MG TABLET (FP) PO SCH (22:19)
[2021-05-01] MEDS: QUEtiapine FUMARATE 25 MG TABLET PO SCH (22:19)
[2021-05-02 08:28] LABS: BASO % 0.8 % (0-2.0); EOS % 1.2 % (0-4.5); HEMATOCRIT 38.3 % (35.4-49); HEMOGLOBIN 13.2 GM/dL (11.7-16.9); MCH 29.8 pg (25.7-33.7); MCHC 34.4 g/dl (32.0-35.9); MEAN CELL VOLUME 86.5 fl (80-96); MEAN PLT VOLUME 9.4 fl (7.5-11.1); MONO % 7.2 % (3.8-10.2); NEUT % 78.8 % (42.8-82.8); PLATELET COUNT 311 10^3/uL (134-434); RBC 4.43 M/mm3 (4.00-5.60); RDW 13.8 % (11.9-15.9); WHITE BLOOD COUNT 10.1 K/mm3 (4.0-10.0)
[2021-05-02 08:34] LABS: INR 1.19 (0.83-1.09); PROTHROMBIN TIME (PATIENT) 14.7 SEC (9.7-13.0)
[2021-05-02 08:36] LABS: ACTIVATED PTT 30.1 SECONDS (25.2-36.5)
[2021-05-02 08:50] LABS: ALBUMIN 2.4 g/dl (3.4-5.0); BLOOD UREA NITROGEN 14.6 mg/dL (7-18); CALCIUM 8.7 mg/dL (8.5-10.1); MAGNESIUM 1.7 mg/dL (1.8-2.4)
[2021-05-02 08:54] LABS: BILIRUBIN,TOTAL 0.7 mg/dL (0.2-1); CREATININE 0.5 mg/dL (0.55-1.3); PHOSPHOROUS 2.6 mg/dL (2.5-4.9)
[2021-05-02] MEDS: POTASSIUM CHLORIDE 10 MEQ in AMINO ACIDS 4.25%/D5W 1,000 ML IV SCH ×2 (09:27→11:55)
[2021-05-02] MEDS: BUDESONIDE/FORMETEROL FUMARATE 160/4.5 mcg INHALER IH SCH ×2 (09:28→23:08)
[2021-05-02] MEDS: MULTIVIT INJ. ADULT COMBO WITH VIT K 1 COMBO 10 ML VIAL IV SCH (09:28)
[2021-05-02] MEDS: SPIRONOLACTONE 25 MG TABLET PO SCH (09:28)
[2021-05-02] MEDS: metoPROLOL SUCCINATE 25 MG TAB.SR.24H (FP) PO SCH (09:28)
[2021-05-02] MEDS: LISINOPRIL 10 MG TABLET PO SCH (09:28)
[2021-05-02] MEDS ORDERED: MAGNESIUM SULF 50% (8.12 MEQ/2 ML-1 GM VIAL) IVPB ONE (11:45)
[2021-05-02] MEDS ORDERED: PT OWN MED DRAWER 7, Y5N ONE (21:51)
[2021-05-02] MEDS: FAT EMULSION/OLIVE/SOY/PHOSPHO 250 ML IV SCH (21:57)
[2021-05-02] MEDS: QUEtiapine FUMARATE 25 MG TABLET PO SCH (23:07)
[2021-05-02] MEDS: ROSUVASTATIN CA 10 MG TABLET (FP) PO SCH (23:07)
[2021-05-03] MEDS: POTASSIUM CHLORIDE 10 MEQ in AMINO ACIDS 4.25%/D5W 1,000 ML IV SCH ×3 (05:26→23:44)
[2021-05-03] MEDS: MULTIVIT INJ. ADULT COMBO WITH VIT K 1 COMBO 10 ML VIAL IV SCH ×2 (09:01→23:44)
[2021-05-03] MEDS: metoPROLOL SUCCINATE 25 MG TAB.SR.24H (FP) PO SCH (09:02)
[2021-05-03] MEDS: SPIRONOLACTONE 25 MG TABLET PO SCH (09:02)
[2021-05-03] MEDS: LISINOPRIL 10 MG TABLET PO SCH (09:02)
[2021-05-03] MEDS: BUDESONIDE/FORMETEROL FUMARATE 160/4.5 mcg INHALER IH SCH ×2 (09:34→23:46)
[2021-05-03 09:59] LABS: HEMATOCRIT 38.9 % (35.4-49); HEMOGLOBIN 13.3 GM/dL (11.7-16.9); MCH 29.3 pg (25.7-33.7); MCHC 34.3 g/dl (32.0-35.9); MEAN CELL VOLUME 85.5 fl (80-96); MEAN PLT VOLUME 9.6 fl (7.5-11.1); PLATELET COUNT 281 10^3/uL (134-434); RBC 4.55 M/mm3 (4.00-5.60); RDW 14.3 % (11.9-15.9)
[2021-05-03 10:08] LABS: CALCIUM 8.8 mg/dL (8.5-10.1)
[2021-05-03 10:09] LABS: ALBUMIN 2.4 g/dl (3.4-5.0); BLOOD UREA NITROGEN 14.1 mg/dL (7-18); MAGNESIUM 1.9 mg/dL (1.8-2.4)
[2021-05-03 10:12] LABS: CREATININE 0.5 mg/dL (0.55-1.3)
[2021-05-03 10:13] LABS: BILIRUBIN,TOTAL 0.6 mg/dL (0.2-1); TOT PROT 6.8 g/dl (6.4-8.2)
[2021-05-03 10:35] LABS: PHOSPHOROUS 2.3 mg/dL (2.5-4.9)
[2021-05-03 13:09] LABS: ANISOCYTOSIS 1+; MACROCYTOSIS 0; OVALOCYTE 1+; PLATELET ESTIMATE NORMAL; TEAR DROP CELLS 1+
[2021-05-03] MEDS ORDERED: SODIUM PHOSPHATE - 30 MM in SODIUM CHLORIDE 500 ML IVPB ONE (13:42)
[2021-05-03] MEDS ORDERED: PT OWN MED DRAWER 7, Y5N ONE ×2 (14:29→19:44)
[2021-05-03] MEDS: ROSUVASTATIN CA 10 MG TABLET (FP) PO SCH (23:45)
[2021-05-03] MEDS: FAT EMULSION/OLIVE/SOY/PHOSPHO 250 ML IV SCH (23:45)
[2021-05-03] MEDS: QUEtiapine FUMARATE 25 MG TABLET PO SCH (23:46)
[2021-05-04] MEDS ORDERED: CEFAZOLIN 1 GM/D5W 2 GM/100 ML BAG ONE (07:51)
[2021-05-04] MEDS ORDERED: LISINOPRIL 10 MG TABLET PO SCH (10:00)
[2021-05-04] MEDS ORDERED: MULTIVIT INJ. ADULT COMBO WITH VIT K 1 COMBO 10 ML VIAL IV SCH (10:00)
[2021-05-04] MEDS ORDERED: SPIRONOLACTONE 25 MG TABLET PO SCH (10:00)
[2021-05-04 10:13] LABS: BASO % 0.5 % (0-2.0); EOS % 0.8 % (0-4.5); HEMATOCRIT 39.4 % (35.4-49); HEMOGLOBIN 13.3 GM/dL (11.7-16.9); LYMPH % 10.8 % (8-40); MCH 29.2 pg (25.7-33.7); MCHC 33.7 g/dl (32.0-35.9); MEAN CELL VOLUME 86.9 fl (80-96); MONO % 7.8 % (3.8-10.2); NEUT % 80.1 % (42.8-82.8); PLATELET COUNT 276 10^3/uL (134-434); RBC 4.53 M/mm3 (4.00-5.60); RDW 14.2 % (11.9-15.9); WHITE BLOOD COUNT 10.4 K/mm3 (4.0-10.0)
[2021-05-04 10:33] LABS: ALBUMIN 2.6 g/dl (3.4-5.0); BLOOD UREA NITROGEN 14.5 mg/dL (7-18); CALCIUM 9.3 mg/dL (8.5-10.1); MAGNESIUM 1.9 mg/dL (1.8-2.4)
[2021-05-04 10:37] LABS: CREATININE 0.7 mg/dL (0.55-1.3); PHOSPHOROUS 3.3 mg/dL (2.5-4.9)
[2021-05-04 10:38] LABS: BILIRUBIN,TOTAL 0.7 mg/dL (0.2-1); TOT PROT 7.3 g/dl (6.4-8.2)
[2021-05-04] MEDS: metoPROLOL SUCCINATE 25 MG TAB.SR.24H (FP) PO SCH (13:38)
[2021-05-04] MEDS: BUDESONIDE/FORMETEROL FUMARATE 160/4.5 mcg INHALER IH SCH ×2 (13:39→21:25)
[2021-05-04] MEDS: POTASSIUM CHLORIDE 10 MEQ in AMINO ACIDS 4.25%/D5W 1,000 ML IV SCH (13:43)
[2021-05-04] MEDS: AMINO ACIDS/PROTEIN HYDROLYS 30 ML LIQUID.PKT PO SCH (18:11)
[2021-05-04] MEDS ORDERED: QUEtiapine FUMARATE 25 MG TABLET ONE (21:20)
[2021-05-04] MEDS: QUEtiapine FUMARATE 50 MG TABLET PEG SCH (21:24)
[2021-05-04] MEDS: ROSUVASTATIN CA 10 MG TABLET (FP) PO SCH (21:25)
[2021-05-04] MEDS ORDERED: PT OWN MED DRAWER 7, Y5N ONE (21:27)
[2021-05-04] MEDS ORDERED: QUEtiapine FUMARATE 50 MG TABLET PO SCH (22:00)
[2021-05-04] MEDS ORDERED: ROSUVASTATIN CA 10 MG TABLET (FP) PO SCH (22:00)
[2021-05-05] MEDS ORDERED: POTASSIUM CHLORIDE 10 MEQ in AMINO ACIDS 4.25%/D5W 1,000 ML IV SCH (00:15)
[2021-05-05] MEDS: ACETAMINOPHEN 325 MG TABLET (FP) PO PRN (04:12)
[2021-05-05 08:27] LABS: EPI CELLS 3 /uL (0-25.1); HYALINE CASTS 1 /uL (0-3.1); PH,URINE 5.5 (5.0-8.0); URINE APPEARANCE CLEAR; URINE BACTERIA 3 /uL (0-1359); URINE BILIRUBIN NEGATIVE (NEGATIVE); URINE COLOR DK YELLOW; URINE GLUCOSE (UA) NEGATIVE (NEGATIVE); URINE KETONE NEGATIVE (NEGATIVE); URINE LEUK ESTERASE TRACE (NEGATIVE); URINE NITRITE NEGATIVE (NEGATIVE); URINE PROTEIN NEGATIVE (NEGATIVE); URINE RBC 13 /uL (0-23.9); URINE WBC 5 /uL (0-25.8)
[2021-05-05] MEDS ORDERED: CLOPIDOGREL BISULFATE 75 MG TABLET (FP) PO SCH (10:00)
[2021-05-05] MEDS: ENOXAPARIN NA (PORCINE) 40 MG/0.4 ML DISP.SYRIN SQ SCH (10:08)
[2021-05-05] MEDS: AMINO ACIDS/PROTEIN HYDROLYS 30 ML LIQUID.PKT PO SCH ×2 (10:08→17:13)
[2021-05-05] MEDS: ASPIRIN 81 MG CHEWABLE TABLETS PEG SCH (10:09)
[2021-05-05] MEDS: LISINOPRIL 10 MG TABLET PEG SCH (10:09)
[2021-05-05] MEDS: CLOPIDOGREL BISULFATE 75 MG TABLET (FP) PEG SCH (10:09)
[2021-05-05] MEDS: BUDESONIDE/FORMETEROL FUMARATE 160/4.5 mcg INHALER IH SCH ×2 (10:09→22:34)
[2021-05-05] MEDS: metoPROLOL SUCCINATE 25 MG TAB.SR.24H (FP) PO SCH (10:10)
[2021-05-05 12:26] LABS: BASO % 0.3 % (0-2.0); EOS % 0.8 % (0-4.5); HEMATOCRIT 37.1 % (35.4-49); HEMOGLOBIN 12.3 GM/dL (11.7-16.9); LYMPH % 10.7 % (8-40); MCH 28.7 pg (25.7-33.7); MCHC 33.3 g/dl (32.0-35.9); MEAN CELL VOLUME 86.3 fl (80-96); MEAN PLT VOLUME 10.2 fl (7.5-11.1); MONO % 9.3 % (3.8-10.2); NEUT % 78.9 % (42.8-82.8); PLATELET COUNT 253 10^3/uL (134-434); RDW 14.7 % (11.9-15.9)
[2021-05-05 13:02] LABS: ALBUMIN 2.3 g/dl (3.4-5.0); BLOOD UREA NITROGEN 14.6 mg/dL (7-18); CALCIUM 8.8 mg/dL (8.5-10.1); MAGNESIUM 1.8 mg/dL (1.8-2.4)
[2021-05-05 13:05] LABS: CREATININE 0.5 mg/dL (0.55-1.3); PHOSPHOROUS 2.9 mg/dL (2.5-4.9)
[2021-05-05 13:06] LABS: TOT PROT 6.7 g/dl (6.4-8.2)
[2021-05-05 13:08] LABS: BILIRUBIN,TOTAL 0.5 mg/dL (0.2-1)
[2021-05-05] MEDS: BACITRACIN 15 GM TUBE TOPICAL OINTMENT TP SCH ×2 (17:13→22:31)
[2021-05-05] MEDS ORDERED: QUEtiapine FUMARATE 25 MG TABLET ONE (22:11)
[2021-05-05] MEDS: QUEtiapine FUMARATE 50 MG TABLET PEG SCH (22:32)
[2021-05-05] MEDS: ROSUVASTATIN CA 10 MG TABLET (FP) PO SCH (22:32)
[2021-05-06] MEDS: ACETAMINOPHEN 325 MG TABLET (FP) PO PRN (05:08)
[2021-05-06 09:23] LABS: BASO % 0.9 % (0-2.0); EOS % 0.6 % (0-4.5); HEMATOCRIT 35.7 % (35.4-49); HEMOGLOBIN 11.9 GM/dL (11.7-16.9); LYMPH % 12.9 % (8-40); MCH 28.9 pg (25.7-33.7); MCHC 33.4 g/dl (32.0-35.9); MEAN CELL VOLUME 86.6 fl (80-96); MEAN PLT VOLUME 10.1 fl (7.5-11.1); MONO % 13.6 % (3.8-10.2); PLATELET COUNT 218 10^3/uL (134-434); RBC 4.12 M/mm3 (4.00-5.60); RDW 14.6 % (11.9-15.9); WHITE BLOOD COUNT 12.5 K/mm3 (4.0-10.0)
[2021-05-06] MEDS: AMINO ACIDS/PROTEIN HYDROLYS 30 ML LIQUID.PKT PO SCH ×2 (09:53→17:42)
[2021-05-06] MEDS: ASPIRIN 81 MG CHEWABLE TABLETS PEG SCH (09:53)
[2021-05-06] MEDS: CLOPIDOGREL BISULFATE 75 MG TABLET (FP) PEG SCH (09:53)
[2021-05-06] MEDS: ENOXAPARIN NA (PORCINE) 40 MG/0.4 ML DISP.SYRIN SQ SCH (09:53)
[2021-05-06] MEDS: LISINOPRIL 10 MG TABLET PEG SCH (09:57)
[2021-05-06] MEDS: metoPROLOL SUCCINATE 25 MG TAB.SR.24H (FP) PO SCH (09:57)
[2021-05-06] MEDS: BACITRACIN 15 GM TUBE TOPICAL OINTMENT TP SCH ×2 (09:59→21:30)
[2021-05-06] MEDS: BUDESONIDE/FORMETEROL FUMARATE 160/4.5 mcg INHALER IH SCH ×2 (09:59→21:31)
[2021-05-06 10:12] LABS: ALBUMIN 2.2 g/dl (3.4-5.0); BLOOD UREA NITROGEN 16.7 mg/dL (7-18); CALCIUM 8.7 mg/dL (8.5-10.1)
[2021-05-06 10:15] LABS: CREATININE 0.6 mg/dL (0.55-1.3)
[2021-05-06 10:16] LABS: BILIRUBIN,TOTAL 0.7 mg/dL (0.2-1); TOT PROT 6.6 g/dl (6.4-8.2)
[2021-05-06] MEDS ORDERED: QUEtiapine FUMARATE 25 MG TABLET ONE (21:20)
[2021-05-06] MEDS: ROSUVASTATIN CA 10 MG TABLET (FP) PO SCH (21:30)
[2021-05-06] MEDS: QUEtiapine FUMARATE 50 MG TABLET PEG SCH (21:31)
[2021-05-07 09:03] LABS: BASO % 0.5 % (0-2.0); EOS % 1.1 % (0-4.5); HEMATOCRIT 34.5 % (35.4-49); HEMOGLOBIN 11.7 GM/dL (11.7-16.9); LYMPH % 10.1 % (8-40); MCH 29.3 pg (25.7-33.7); MCHC 33.8 g/dl (32.0-35.9); MEAN CELL VOLUME 86.7 fl (80-96); MEAN PLT VOLUME 10.6 fl (7.5-11.1); MONO % 9.9 % (3.8-10.2); NEUT % 78.4 % (42.8-82.8); PLATELET COUNT 203 10^3/uL (134-434); RBC 3.98 M/mm3 (4.00-5.60); RDW 14.7 % (11.9-15.9); WHITE BLOOD COUNT 11.9 K/mm3 (4.0-10.0)
[2021-05-07 09:29] LABS: BLOOD UREA NITROGEN 19.1 mg/dL (7-18); CALCIUM 8.4 mg/dL (8.5-10.1); MAGNESIUM 1.8 mg/dL (1.8-2.4)
[2021-05-07 09:32] LABS: BILIRUBIN,TOTAL 0.4 mg/dL (0.2-1); TOT PROT 6.4 g/dl (6.4-8.2)
[2021-05-07 09:33] LABS: CREATININE 0.6 mg/dL (0.55-1.3)
[2021-05-07] MEDS ORDERED: PT OWN MED DRAWER 7, Y5N ONE ×2 (09:36→21:52)
[2021-05-07] MEDS: CLOPIDOGREL BISULFATE 75 MG TABLET (FP) PEG SCH (09:41)
[2021-05-07] MEDS: AMINO ACIDS/PROTEIN HYDROLYS 30 ML LIQUID.PKT PO SCH ×2 (09:41→16:57)
[2021-05-07] MEDS: metoPROLOL SUCCINATE 25 MG TAB.SR.24H (FP) PO SCH (09:41)
[2021-05-07] MEDS: ASPIRIN 81 MG CHEWABLE TABLETS PEG SCH (09:42)
[2021-05-07] MEDS: LISINOPRIL 10 MG TABLET PEG SCH (09:44)
[2021-05-07] MEDS: BUDESONIDE/FORMETEROL FUMARATE 160/4.5 mcg INHALER IH SCH ×2 (09:47→21:50)
[2021-05-07] MEDS: ENOXAPARIN NA (PORCINE) 40 MG/0.4 ML DISP.SYRIN SQ SCH (09:53)
[2021-05-07] MEDS: BACITRACIN 15 GM TUBE TOPICAL OINTMENT TP SCH ×2 (10:20→21:49)
[2021-05-07] MEDS: NYSTATIN POWDER 100,000 UNITS/GM - 15 GM TOPICAL POWDER TP SCH ×2 (14:50→21:52)
[2021-05-07] MEDS ORDERED: QUEtiapine FUMARATE 25 MG TABLET ONE (21:40)
[2021-05-07] MEDS: QUEtiapine FUMARATE 50 MG TABLET PEG SCH (21:49)
[2021-05-07] MEDS: ROSUVASTATIN CA 10 MG TABLET (FP) PO SCH (21:49)
[2021-05-08] MEDS: AMINO ACIDS/PROTEIN HYDROLYS 30 ML LIQUID.PKT PO SCH ×3 (08:47→18:22)
[2021-05-08 09:50] LABS: BASO % 0.3 % (0-2.0); EOS % 1.1 % (0-4.5); HEMATOCRIT 32.5 % (35.4-49); HEMOGLOBIN 10.7 GM/dL (11.7-16.9); LYMPH % 11.5 % (8-40); MCH 28.5 pg (25.7-33.7); MCHC 32.8 g/dl (32.0-35.9); MEAN CELL VOLUME 86.7 fl (80-96); MEAN PLT VOLUME 10.5 fl (7.5-11.1); MONO % 11.4 % (3.8-10.2); NEUT % 75.7 % (42.8-82.8); PLATELET COUNT 194 10^3/uL (134-434); RBC 3.75 M/mm3 (4.00-5.60); RDW 14.3 % (11.9-15.9); WHITE BLOOD COUNT 12.3 K/mm3 (4.0-10.0)
[2021-05-08 10:18] LABS: CALCIUM 8.4 mg/dL (8.5-10.1)
[2021-05-08 10:19] LABS: BLOOD UREA NITROGEN 19.7 mg/dL (7-18)
[2021-05-08 10:21] LABS: PHOSPHOROUS 3.4 mg/dL (2.5-4.9)
[2021-05-08 10:22] LABS: CREATININE 0.6 mg/dL (0.55-1.3)
[2021-05-08 10:23] LABS: BILIRUBIN,TOTAL 0.5 mg/dL (0.2-1); TOT PROT 6.5 g/dl (6.4-8.2)
[2021-05-08] MEDS: ASPIRIN 81 MG CHEWABLE TABLETS PEG SCH (11:11)
[2021-05-08] MEDS: CLOPIDOGREL BISULFATE 75 MG TABLET (FP) PEG SCH (11:11)
[2021-05-08] MEDS: metoPROLOL SUCCINATE 25 MG TAB.SR.24H (FP) PO SCH (11:12)
[2021-05-08] MEDS: ENOXAPARIN NA (PORCINE) 40 MG/0.4 ML DISP.SYRIN SQ SCH (11:12)
[2021-05-08] MEDS: LISINOPRIL 10 MG TABLET PEG SCH (11:12)
[2021-05-08] MEDS: BACITRACIN 15 GM TUBE TOPICAL OINTMENT TP SCH ×2 (11:19→21:12)
[2021-05-08] MEDS: NYSTATIN POWDER 100,000 UNITS/GM - 15 GM TOPICAL POWDER TP SCH ×2 (11:19→21:14)
[2021-05-08] MEDS: BUDESONIDE/FORMETEROL FUMARATE 160/4.5 mcg INHALER IH SCH ×2 (11:20→21:13)
[2021-05-08] MEDS ORDERED: QUEtiapine FUMARATE 25 MG TABLET ONE (20:57)
[2021-05-08] MEDS: QUEtiapine FUMARATE 50 MG TABLET PEG SCH (21:13)
[2021-05-08] MEDS: ROSUVASTATIN CA 10 MG TABLET (FP) PO SCH (21:14)
[2021-05-09 08:06] LABS: BASO % 0.6 % (0-2.0); EOS % 2.8 % (0-4.5); HEMATOCRIT 31.2 % (35.4-49); HEMOGLOBIN 10.6 GM/dL (11.7-16.9); LYMPH % 13.5 % (8-40); MEAN CELL VOLUME 85.5 fl (80-96); MEAN PLT VOLUME 9.9 fl (7.5-11.1); MONO % 10.2 % (3.8-10.2); NEUT % 72.9 % (42.8-82.8); PLATELET COUNT 179 10^3/uL (134-434); RBC 3.66 M/mm3 (4.00-5.60); RDW 14.8 % (11.9-15.9); WHITE BLOOD COUNT 9.4 K/mm3 (4.0-10.0)
[2021-05-09 08:47] LABS: BILIRUBIN,TOTAL 0.5 mg/dL (0.2-1); TOT PROT 6.4 g/dl (6.4-8.2)
[2021-05-09 08:48] LABS: ALBUMIN 1.9 g/dl (3.4-5.0)
[2021-05-09 08:51] LABS: CREATININE 0.6 mg/dL (0.55-1.3)
[2021-05-09 08:52] LABS: MAGNESIUM 2.1 mg/dL (1.8-2.4); PHOSPHOROUS 3.5 mg/dL (2.5-4.9)
[2021-05-09] MEDS ORDERED: PT OWN MED DRAWER 7, Y5N ONE (09:27)
[2021-05-09] MEDS: ENOXAPARIN NA (PORCINE) 40 MG/0.4 ML DISP.SYRIN SQ SCH (09:37)
[2021-05-09] MEDS: BACITRACIN 15 GM TUBE TOPICAL OINTMENT TP SCH (09:37)
[2021-05-09] MEDS: AMINO ACIDS/PROTEIN HYDROLYS 30 ML LIQUID.PKT PO SCH ×2 (09:37→17:25)
[2021-05-09] MEDS: CLOPIDOGREL BISULFATE 75 MG TABLET (FP) PEG SCH (09:38)
[2021-05-09] MEDS: ASPIRIN 81 MG CHEWABLE TABLETS PEG SCH (09:38)
[2021-05-09] MEDS: metoPROLOL SUCCINATE 25 MG TAB.SR.24H (FP) PO SCH (09:38)
[2021-05-09] MEDS: LISINOPRIL 10 MG TABLET PEG SCH (09:38)
[2021-05-09] MEDS: NYSTATIN POWDER 100,000 UNITS/GM - 15 GM TOPICAL POWDER TP SCH (09:40)
[2021-05-09] MEDS: BUDESONIDE/FORMETEROL FUMARATE 160/4.5 mcg INHALER IH SCH (09:40)
[2021-05-09 18:27] VITALS: BP 121/63; PULSE 81; TEMP 97.6
== END 2021-05-09 20:10 | DRG 70 ==
LOC: JER 16:59 → JERBED 19:03 → J4W 04-14 02:03 → J5S 04-19 14:14
PROVIDERS: ADMIT Internal Medicine
PROC: 0DJ08ZZ Inspection of Upper Intestinal Tract, Via Natural or Artificial Opening Endoscopic (ICD-10-PCS; 2021-05-04)
PROC: 0DH64UZ Insertion of Feeding Device into Stomach, Percutaneous Endoscopic Approach (ICD-10-PCS; principal; 2021-05-04 07:30)
DX: G93.49 Other encephalopathy (principal); J18.9 Pneumonia, unspecified organism; I50.23 Acute on chronic systolic (congestive) heart failure; N17.9 Acute kidney failure, unspecified; E87.0 Hyperosmolality and hypernatremia; I13.0 Hypertensive heart and chronic kidney disease with heart failure and stage 1 through stage 4 chronic kidney disease, or unspecified chronic kidney disease; E46 Unspecified protein-calorie malnutrition; F02.81 Dementia in other diseases classified elsewhere, unspecified severity, with behavioral disturbance; U09.9 Post COVID-19 condition, unspecified; G20 Parkinson's disease; I10 Essential (primary) hypertension; N18.9 Chronic kidney disease, unspecified; I25.10 Atherosclerotic heart disease of native coronary artery without angina pectoris; E78.00 Pure hypercholesterolemia, unspecified; D72.829 Elevated white blood cell count, unspecified; R73.9 Hyperglycemia, unspecified; F17.210 Nicotine dependence, cigarettes, uncomplicated; Z68.26 Body mass index [BMI] 26.0-26.9, adult; J44.9 Chronic obstructive pulmonary disease, unspecified; E78.5 Hyperlipidemia, unspecified; I73.9 Peripheral vascular disease, unspecified; E83.42 Hypomagnesemia; E83.39 Other disorders of phosphorus metabolism; R74.01 Elevation of levels of liver transaminase levels; R13.10 Dysphagia, unspecified
CPT/HCPCS: 36415; 36600; 70450-TC; 70551-TC; 71045-TC-FY; 74230-TC-FY; 76775-TC; 80048; 80053; 80061; 81003; 82803; 82962; 83036; 83735; 83880; 84100; 84443; 84484; 85025; 85610; 85730; 87040; 87086; 87804; 92611-GN; 93005; 93010; 93306-TC; 94640; 97116-GP; 97161-GP; 99285-25; C9803; J0131; J1644; U0003; U0005